=== PATIENT | male | born 1950 | race Caucasian/White ===

== ENCOUNTER → 2024-08-04 | Outpatient (CLI) | payer MEDICARE, SELFPAY ==
[2024-08-04 18:03] LABS: Absolute Lymphocyte Count 2.55 X10^3/uL (0.83-4.51); Absolute Neutrophil Count 8.5 X10^3/uL (2.0-7.7); Basophil# 0.07 X10^3/uL; Basophil% 0.6 % (0-1); Eosinophil# 0.27 X10^3/uL; Eosinophils% 2.2 % (0-5); Hematocrit 45.8 % (40-54); Hemoglobin 15.3 g/dL (13.0-16.5); Lymphocyte # 2.55 X10^3/ul (0.83-4.51); Mean Corp Hgb Conc 33.4 g/dL (32-36); Mean Corpuscular Volume 89.8 fL (80-94); Mean Platelet Vol. 11.2 fl (6.2-12.0); Monocyte% 5.8 % (0-10); NRBC Flagged by Analyzer 0 % (0-5); Neutrophil # 8.49 X10^3/uL (2.7-7.7); Platelet Count 273 K/mm3 (150-450); RBC Distribution Width CV 13.2 % (11.6-14.6); RBC Distribution Width SD 43.3 fl (35.1-43.9); White Blood Count 12.1 K/mm3 (4.4-11.0)
[2024-08-04 18:05] LABS: Erythrocyte Sedimentation Rate 2 mm/hr (0-20)
[2024-08-04 18:27] LABS: ALB/GLOB Ratio 1.1 RATIO (0.9-2.4); AST(SGOT) 16 U/L (15-37); Alanine Aminotransfer ALT/SGPT 21 U/L (16-61); Alkaline Phosphatase 63 U/L (45-117); Anion Gap 7 (5-15); BUN 23 mg/dL (7-18); BUN/Creat Ratio 18.9 RATIO (10-20); CRP < 2.90 mg/L (0.0-3.0); Calcium,Total 9.9 mg/dL (8.5-10.1); Chloride 105 mmol/L (98-107); Creatinine, Serum 1.22 mg/dL (0.70-1.30); EST Glomerular Filtration Rate 61 mL/min (>60); Est Glom Filt Rate - Afr Amer 74 mL/min (>60); Globulin 3.5 g/dL (2.2-4.2); Glucose 100 mg/dL (74-106); Potassium 3.4 mmol/L (3.5-5.1); Protein, Total 7.5 g/dL (6.4-8.2); Sodium Level 138 mmol/L (136-145)
[2024-08-04 18:46] LABS: Hepatitis B Surface Antibody Non-Reactive; Hepatitis B Surface Antigen Non-Reactive (Nonreactive); Hepatitis C Antibody Non-Reactive (Nonreactive)
[2024-08-07 13:07] LABS: CCP IgG Antibodies > 250 units (0-19)
== END | disposition home or self-care (01) ==
PROVIDERS: PCP Internal Medicine; Referring Provider Internal Medicine Rheumatology; Visit Provider Internal Medicine Rheumatology
DX: M05.79 Rheumatoid arthritis with rheumatoid factor of multiple sites without organ or systems involvement (principal); Z79.899 Other long term (current) drug therapy
CPT/HCPCS: 36415; 80053; 85025; 85652; 86140; 86200; 86431; 86706; 86803; 87340

== ENCOUNTER → 2025-04-03 | Outpatient (CLI) | payer MEDICARE, SELFPAY ==
[2025-04-03 17:08] LABS: ALB/GLOB Ratio 1.4 RATIO (0.9-2.4); AST(SGOT) 36 U/L (<=37); Alanine Aminotransfer ALT/SGPT 26 U/L (<=46); Albumin, Serum 4.2 g/dL (3.4-4.8); Alkaline Phosphatase 46 U/L (40-129); Anion Gap 13 (5-15); BUN 27 mg/dL (4-19); BUN/Creat Ratio 20.2 RATIO (10-20); Carbon Dioxide 21.4 mmol/L (21.0-32.0); Chloride 104 mmol/L (98-108); Creatinine, Serum 1.32 mg/dL (0.70-1.20); EST Glomerular Filtration Rate 56 (>60); Globulin 2.9 g/dL (2.2-4.2); Glucose 88 mg/dL (70-99); Potassium 4.2 mmol/L (3.3-5.1); Protein, Total 7.1 g/dL (5.9-8.4); Sodium Level 138 mmol/L (133-145); Total Bilirubin 0.53 mg/dL (0.00-1.30)
[2025-04-03 17:11] LABS: Absolute Lymphocyte Count 1.82 X10^3/uL (0.83-4.51); Absolute Neutrophil Count 7.5 X10^3/uL (2.0-7.7); Basophil# 0.05 X10^3/uL; Basophil% 0.5 % (0-1); Eosinophil# 0.34 X10^3/uL; Eosinophils% 3.2 % (0-5); Hematocrit 39.9 % (40-54); Hemoglobin 13.6 g/dL (13.0-16.5); Lymphocyte # 1.82 X10^3/ul (0.83-4.51); Lymphocyte % 17.3 % (19-41); Mean Corp Hgb Conc 34.1 g/dL (32-36); Mean Corpuscular Volume 93.9 fL (80-94); Mean Platelet Vol. 10.7 fl (6.2-12.0); Monocyte% 6.7 % (0-10); NRBC Flagged by Analyzer 0 % (0-5); Neutrophil # 7.54 X10^3/uL (2.7-7.7); Neutrophil % 71.9 % (47-70); Platelet Count 318 K/mm3 (150-450); RBC Distribution Width CV 13.7 % (11.6-14.6); RBC Distribution Width SD 46.9 fl (35.1-43.9); Red Blood Count 4.25 M/mm3 (4.6-6.2); White Blood Count 10.5 K/mm3 (4.4-11.0)
--- OUTSIDE RECORDS SUMMARY | 2025-04-03 23:10 | XMS RPT_ITS | CCD ---
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 Name Role Phone Concepcion Grajeda MD Primary Care Provider ANTHONY AQUINO, DR CONCEPCION Osorio Attending Aracelis Andrews MD, DR CONCEPCION Osorio Primary Care Unavailab Darryl AQUINO, DR CONCEPCION Osorio Attending Aracelis Andrews MD, DR CONCEPCION Osorio Primary Care Unavailab Darryl AQUINO, DR CONCEPCION Osorio Attending Aracelis Andrews MD, DR CONCEPCION Osorio Primary Care Unavailab Darryl AQUINO, DR CONCEPCION Osorio Attending Unavailab Darryl AQUINO, DR CONCEPCION Osorio Primary Care Unavailab Darryl AQUINO, DR CONCEPCION Osorio Primary Care Unavailab 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, 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 Attending Basil Collier Referring Unavailable Basil Gallagher Attending Unavailable Concepcion Grajeda Primary Care Unavailable Concepcion Grajeda MD Primary Care Provider ANTHONY AQUINO, DR CONCEPCION Osorio Primary Care Unavailab Darryl AQUINO, DR CONCEPCION Osorio Attending Aracelis Andrews MD, DR CONCEPCION Osorio Attending Aracleis Andrews MD, DR CONCEPCION Osorio Primary Care Unavailab Dany AQUINO, PANFILO Schneider Attending Unavailable ANTHONY AQUINO, DR CONCEPCION Osorio Primary Care Unavailab le BENY, BASIL L Referring Unavailable CONCEPCION GRAJEDA Primary Care Unavailable DAV LUKE Attending CONCEPCION Cason Primary Care Unavailable BENY, BASIL L Referring Unavailable ANTHONYCONCEPCION Grayson Primary Care Unavailable BENY, BASIL L Referring Unavailable CONCEPCION GRAJEDA Primary Care Unavailable BENY, BASIL L Referring Unavailable CONCEPCION GRAJEDA Primary Care Unavailable ANTHONY AQUINO, DR CONCEPCION Osorio Primary Care Physician BENY AQUINO, DR GRACIA Attending Unavailabl e ANTHONY AQUINO, DR CONCEPCION Osorio Primary Care Unavailab le Medications Current Medications Medication Drug Class(es) Dates Sig (Normalized) Sig (Original) aspirin 81 mg delayed release oral tablet (2 sources) Platelet Aggregation Inhibitor, Nonsteroidal Anti-inflammatory Drug Start: 11-09-2024 aspirin 81 mg oral delayed release tablet Dose : 81 mg = 1 tab(s), Oral, Daily, # 30 tab(s), 0 Refill(s), other reason (Rx) Start Date: 11/09/24 Status: Ordered Quantity: 30.0 Unit: tab(s) Repeat number: 1 fenofibrate 145 mg oral tablet (5 sources) Peroxisome Proliferator Receptor alpha Agonist Start: 06-16-2024 fenofibrate 145 mg oral tablet Dose : 145 mg = 1 tab(s), Oral, qDay, # 100 tab(s), 3 Refill(s), Pharmacy: [facility], 177.8, cm, 05/16/24 8:57:00 EDT, Height, kg, 05/16/24 8:57:00 EDT, Dosing Weight Start Date: 06/16/24 Status: Ordered Quantity: 100.0 Unit: tab(s) Repeat number: 4 Fenofibrate 150 mg cap Take 145 mg by mouth once daily. Active Comment on above: Take 145 mg by mouth once daily. finasteride 5 mg oral tablet (9 sources) 5-alpha Reductase Inhibitor Start: 023 End: 026 finasteride 5 mg oral tablet Dose : 5 mg = 1 tab(s), Oral, qDay, # 30 tab(s), 0 Refill(s) Start Date: 08/10/23 Status: Ordered Quantity: 30.0 Unit: tab(s) Repeat number: 1 Comment on above: Take 1 tablet by gomez th once daily. Take 5 mg by mouth o nce daily. folic acid 1 mg oral tablet (1 source) Start: 025 take 2 tablets by mouth once daily folic acid 1 mg oral tablet TAKE 2 TABLETS BY MOUTH EVERY DAY Start Date: 11/09/24 Status: Ordered Repeat number: 1 hydroCHLOROthiazide 25 mg / losartan potassium 100 mg oral tablet (1 source) Thiazide Diuretic, Angiotensin 2 Receptor Isabel Start: 024 take 1 tablet by mouth once daily Hyzaar 100-25 mg oral tablet Dose = 1 tab(s), Oral, qDay, # 100 tab(s), 4 Refill(s), Pharmacy: [facility], BPH with urinary obstruction Hyperlipidemia, 177.8, cm, 11/01/23 14:32:00 EST, Height, kg, 11/01/23 14:32:00 EST, Dosing Weight Start Date: 01/26/24 Status: Ordered Quantity: 100.0 Unit: tab(s) Repeat number: 5 Indications: Benign prostatic hyperplasia with lower urinary tract symptoms; Hyperlipidemia, unspecified; latanoprost 0.05 mg/ml ophthalmic solution (1 source) Prostaglandin Analog Start: latanoprost 0.005% ophthalmic solution 0 Refill(s) Start Date: 11/09/24 Status: Ordered Repeat number: 1 losartan potassium 100 mg oral tablet (4 sources) Angiotensin 2 Receptor Isabel take 1 tablet by mouth once daily losartan (COZAAR) 100 mg tablet Take 100 mg by mouth once daily. Active Comment on above: Take 100 mg by mouth once daily. methotrexate 2.5 mg oral tablet (2 sources) Folate Analog Metabolic Inhibitor Start: take 6 tablets by mouth every week methotrexate 2.5 mg oral tablet TAKE 6 TABLETS BY MOUTH ONCE A WEEK Start Date: 11/09/24 Status: Ordered Repeat number: 1 Start: 08-11-2024 take 1 tablet by mouth once me thotrexate 2.5 mg tablet Take 2.5 mg by mouth one time only. 08/11/2024 Active omeprazole 40 mg delayed release oral capsule (1 source) Proton Pump Inhibitor Start: 03-01-2025 take 1 capsule by mouth once daily omeprazole 40 mg oral delayed release capsule 1 cap(s), Oral, qDay, # 90 cap(s), 3 Refill(s), Pharmacy: [facility], 177, cm, 11/09/24 13:06:00 EST, Height, kg, 11/09/24 13:06:00 EST, Dosing Weight Start Date: 03/01/25 Status: Ordered Quantity: 90.0 Unit: cap(s) Repeat number: 1 predniSONE 5 mg oral tablet (1 source) Start: 11-09-2024 take 0.5 tablet by mouth once daily predniSONE 5 mg oral tablet 0.5, Oral, qDay, # 30 EA, 1 Refill(s), other reason (Rx) Start Date: 11/09/24 Status: Ordered Quantity: 30.0 Unit: EA Repeat number: 2 rosuvastatin calcium 20 mg oral tablet (5 sources) HMG-CoA Reductase Inhibitor Start: 12-13-2024 take 1 tablet by mouth once daily rosuvastatin 20 mg oral tablet 1 tab(s), Oral, qDay, # 90 tab(s), 3 Refill(s), Pharmacy: [facility], 177, cm, 11/09/24 13:06:00 EST, Height, kg, 11/09/24 13:06:00 EST, Dosing Weight Start Date: 12/13/24 Status: Ordered Quantity: 90.0 Unit: tab(s) Repeat number: 1 take 1 tablet by mouth once matias y rosuvastatin (CRESTOR) 20 mg tablet Take 20 mg by mouth once daily. Active Comment on above: Take 20 mg by mouth once daily. silodosin 8 mg oral capsule (9 sources) alpha-Adrenergic Isabel Start: 3 End: 6 silodosin 8 mg oral capsule Dose : 8 mg = 1 cap(s), Oral, Daily, # 30 cap(s), 0 Refill(s) Start Date: 08/10/23 Status: Ordered Quantity: 30.0 Unit: cap(s) Repeat number: 1 Comment on above: Take 1 capsule by mo ut daily with dinner. Take by mouth daily with dinner. simvastatin 10 mg oral tablet (4 sources) HMG-CoA Reductase Inhibitor take 1 tablet by mouth once daily at bedtime simvastatin (ZOCOR) 10 mg tablet Take 10 mg by mouth daily at bedtime. Active Comment on above: Take 10 mg by mouth daily at bedtime. Problems Active Problems Problem Classification Problem Date Documented Date Episodic/Chronic Chronic kidney disease (1 source) Chronic kidney disease 11-01-2023 Chronic Disorders of lipid metabolism (3 sources) Hyperlipidemia, unspecified; Translations: [Hyperlipidemia] Onset: 08-26-2023 Chronic Esophageal disorders (1 source) Gastroesophageal reflux disease 05-16-2024 Chronic Essential hypertension (5 sources) Essential (primary) hypertension; Translations: [Hypertensive disorder] Onset: 08-26-2023 Chronic Hyperplasia of prostate (6 sources) Weak urinary stream due to benign prostatic hypertrophy; Translations: [Benign prostatic hyperplasia with lower urinary tract symptoms] Onset: 08-26-2023 06-18-2023 Chronic Other aftercare (3 sources) 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; Translations: [prison use of drug] Onset: 09-19-2024 Episodic Other circulatory disease (1 source) Respiratory crackles 05-16-2024 Episodic Other ear and sense organ disorders (1 source) Excessive cerumen in ear canal 08-10-2023 Episodic Other lower respiratory disease (1 source) Pulmonary congestion 08-10-2023 Chronic Other lower respiratory disease (1 source) Imaging of lung abnormal 06-28-2024 Episodic Other lower respiratory disease (1 source) Multiple nodules of lung 11-09-2024 Episodic Other lower respiratory disease (1 source) Wheezing 05-16-2024 Episodic Other non-traumatic joint disorders (2 sources) Pain in unspecified joint; Translations: [Pain in unspecified joint] Onset: 07-20-2024 Episodic Other upper respiratory disease (1 source) Bleeding from nose 08-10-2023 Episodic Other upper respiratory disease (1 source) Hoarse 08-10-2023 Episodic Residual codes; unclassified (1 source) Needs influenza immunization 06-28-2024 Episodic Rheumatoid arthritis and related disease (6 sources) Rheumatoid arthritis with rheumatoid factor of multiple sites without organ or systems involvement; Translations: [Rheumatoid arthritis] Onset: 08-31-2024 11-09-2024 Chronic Unclassified (1 source) Patient encounter status 11-01-2023 Past or Other Problems Problem Classification Problem Date Documented Da te Episodic/Chronic Genitourinary symptoms and ill-defined conditions (1 source) Poor urinary stream; Translations: [Benign prostatic hyperplasia with weak urinary stream] Onset: 11-20-2024 Episodic Other circulatory disease (2 sources) Other specified symptoms and signs involving the circulatory and respiratory systems; Translations: [Other specified symptoms and signs involving the circulatory and respiratory systems] Onset: 08-26-2023 Episodic Other screening for suspected conditions (not mental disorders or infectious disease) (8 sources) Patient encounter status; Translations: [Encounter for screening for malignant neoplasm of prostate] Onset: 11-20-2024 06-18-2023 Episodic Other upper respiratory disease (2 sources) Epistaxis; Translations: [Epistaxis] Onset: 08-26-2023 Episodic Results Test Name Value Interpretation Reference Range Facil ity US ABDOMEN LIMITEDon 025 US ABDOMEN LIMITED ORIGINAL EXAMINATION: LIMITED ABDOMINAL ULTRASOUND03/08/2025 8:10 am COMPARISON: None HISTORY: ORDERING SYSTEM PROVIDED HISTORY: Reason for Exam: ELEVATED LIVER ENZYMES FINDINGS: The liver measures 15.2 cm and has increased echogenicity. No focal lesions are seen. There is no intra or extrahepatic bile duct dilatation. The common duct is 4.1 mm at the ever hepatis. The gallbladder is normally distended without calculus, wall thickening or tenderness. Negative sonographic Ramos sign. The visualized pancreas is normal in size and echogenicity. No ascites is seen in the RIGHT upper quadrant. Limited survey images of the RIGHT kidney show normal echogenicity and no pelvocaliectasis. There is a simple right renal cyst measuring 3 cm. IMPRESSION: Hepatic steatosis or other diffuse hepatocellular disease. I have personally reviewed the images of this examination and agree with the resident's findings and interpretation. Interpreted by: Jc Zarco DO Preliminary Report By: Jose Wilson MD Electronically signed By Jc Zarco DO Dictated Date: 03/08/2025 8:14:26 AM Prelim Date: 03/08/2025 8:29:28 AM Sign Date: 03/08/2025 8:29:28 AM Ordering Provider: BASIL Montanez [facility] Comprehensive metabolic 2000 panelon 03-07-2025 Albumin [Mass/Vol] 3.7 g/dL Normal 3.2-5.0 [facility] Comment on above: Order Comment: Alex gaytan Type: BLOOD SPECIMEN Ordering Facility: [facility] Address: [address] [place] [address] Performed By: #### 2 4323-8 #### [facility] CLIA [id number] [address] [place] [address] [place] ALP [Catalytic activity/Vol] 54 U/L Normal 45-117 [facility] Comment on above: Order Comment: Alex gaytan Type: BLOOD SPECIMEN Ordering Facility: [facility] Address: [address] [place] [address] Performed By: #### 2 4323-8 #### [facility] CLIA [id number] [address] [place] [address] [place] ALT [Catalytic activity/Vol] 19 U/L Normal 13-61 [facility] Comment on above: Order Comment: Speci men Type: BLOOD SPECIMEN Ordering Facility: [facility] Address: [address] [place] [address] Result Comment: Resu lts may be falsely depressed after the administration of Sulfasalazine and/or Sulfapyridine. Performed By: #### 2 4323-8 #### [facility] CLIA [id number] [address] [place] [address] STATES OF [facility] Anion gap [Moles/Vol] 11 mmol/L Normal 5-16 [facility] Comment on above: Order Comment: Speci lukas Type: BLOOD SPECIMEN Ordering Facility: [facility] Address: [address] [place] [address] Performed By: #### 2 4323-8 #### [facility] CLIA [id number] [address] [place] [address] [place] AST [Catalytic activity/Vol] 30 U/L Normal 8-34 [facility] Comment on above: Order Comment: Speci men Type: BLOOD SPECIMEN Ordering Facility: [facility] Address: [address] [place] [address] Result Comment: Resu lts may be falsely depressed after the administration of Sulfasalazine and/or Sulfapyridine. Performed By: #### 2 4323-8 #### [facility] CLIA [id number] [address] [place] [address] [place] Bilirubin [Mass/Vol] 0.5 mg/dL Normal 0.2-1.0 [facility] Comment on above: Order Comment: Speci men Type: BLOOD SPECIMEN Ordering Facility: [facility] Address: [address] [place] [address] Performed By: #### 2 4323-8 #### [facility] CLIA [id number] [address] [place] [address] [place] Calcium [Mass/Vol] 10.2 mg/dL Normal 8.5-10.5 [facility] Comment on above: Order Comment: Alex gaytan Type: BLOOD SPECIMEN Ordering Facility: [facility] Address: [address] [place] [address] Performed By: #### 2 4323-8 #### [facility] CLIA [id number] [address] [place] [address] [place] Chloride [Moles/Vol] 104 mmol/L Normal 98-107 [facility] Comment on above: Order Comment: Alex gaytan Type: BLOOD SPECIMEN Ordering Facility: [facility] Address: [address] [place] [address] Performed By: #### 2 4323-8 #### [facility] CLIA [id number] [address] [place] [address] [place] CO2 [Moles/Vol] 26 mmol/L Normal 21-32 [facility] Comment on above: Order Comment: Alex gaytan Type: BLOOD SPECIMEN Ordering Facility: [facility] Address: [address] [place] [address] Performed By: #### 2 4323-8 #### [facility] CLIA [id number] [address] [place] [address] [place] Creatinine [Mass/Vol] 1.29 mg/dL Normal 0.50-1.40 [facility] Comment on above: Order Comment: Alex gaytan Type: BLOOD SPECIMEN Ordering Facility: [facility] Address: [address] [place] [address] Result Comment: Gwen ents receiving either N-Acetylcysteine (NAC) or Metamizole prior to venipuncture, may have falsely depressed results. Performed By: #### 2 4323-8 #### [facility] CLIA [id number] [address] [place] [address] [place] Creatinine and Glomerular filtration rate.predicted panel (S/P/Bld) 57 mL/min/1.73m??? Low >=60 [facility] Comment on above: Order Comment: Alex gaytan Type: BLOOD SPECIMEN Ordering Facility: [facility] Address: [address] [place] [address] Result Comment: Lynn mated Glomerular Filtration Rate (eGFR) is calculated using the 2020 CKD-EPI creatinine equation. This equation utilizes serum creatinine, sex, and age as parameters. The creatinine assay has traceable calibration to isotope dilution-mass spectrometry. Refer to KDIGO guidelines for clinical interpretation. In patients with unstable renal function, e.g. those with acute kidney injury, the eGFR may not accurately reflect actual GFR. Performed By: #### 2 4323-8 #### [facility] CLIA [id number] [address] [place] [address] [place] Glucose [Mass/Vol] 95 mg/dL Normal 70-100 [facility] Comment on above: Order Comment: Speci men Type: BLOOD SPECIMEN Ordering Facility: [facility] Address: [address] [place] [address] Result Comment: The [place] [employer] (ADA) provides guidance for cutoff values for fasting glucose and random glucose. The ADA defines fasting as no caloric intake for at least 8 hours. Fasting plasma glucose results between 100 to 125 mg/dL indicate increased risk for diabetes (prediabetes). Fasting plasma glucose results greater than or equal to 126 mg/dL meet the criteria for diagnosis of diabetes. In the absence of unequivocal hyperglycemia, results should be confirmed by repeat testing. In a patient with classic symptoms of hyperglycemia or hyperglycemic crisis, random plasma glucose results greater than or equal to 200 mg/dL meet the criteria for diagnosis of diabetes. Reference: Standards of Medical Care in Diabetes 2016, [place] [employer]. Diabetes Care. 2016.39(Suppl 1). Results may be falsely elevated after the administration of Sulfapyridine. Results may be falsely depressed after the administration of Sulfasalazine. Performed By: #### 2 4323-8 #### [facility] CLIA [id number] [address] [place] [address] [place] Potassium [Moles/Vol] 3.9 mmol/L Normal 3.5-5.1 [facility] Comment on above: Order Comment: Speci men Type: BLOOD SPECIMEN Ordering Facility: [facility] Address: [address] [place] [address] Performed By: #### 2 4323-8 #### [facility] CLIA [id number] [address] [place] [address] [place] Protein [Mass/Vol] 6.8 g/dL Normal 6.0-8.5 [facility] Comment on above: Order Comment: Speci men Type: BLOOD SPECIMEN Ordering Facility: [facility] Address: [address] [place] [address] Performed By: #### 2 4323-8 #### [facility] CLIA [id number] [address] [place] [address] [place] Sodium [Moles/Vol] 141 mmol/L Normal 136-145 [facility] Comment on above: Order Comment: Speci men Type: BLOOD SPECIMEN Ordering Facility: [facility] Address: [address] [place] [address] Performed By: #### 2 4323-8 #### [facility] CLIA [id number] [address] [place] [address] [place] Urea nitrogen [Mass/Vol] 29 mg/dL High 7-26 [facility] Comment on above: Order Comment: Speci men Type: BLOOD SPECIMEN Ordering Facility: [facility] Address: [address] [place] [address] Performed By: #### 2 4323-8 #### [facility] CLIA [id number] [address] [place] [address] [place] CBC W Auto Differential pane l (Bld)on 01-23-2025 Basophils (Bld) [#/Vol] 0.07 10*3/uL Normal <0.11 [facility] Comment on above: Order Comment: Speci men Type: BLOOD SPECIMEN Ordering Facility: [facility] Address: [address] [place] [address] Performed By: #### 5 7021-8 #### [facility] CLIA [id number] [address] [place] [address] [place] Basophils/100 WBC (Bld) 1.0 % Normal [facility] Comment on above: Order Comment: Speci men Type: BLOOD SPECIMEN Ordering Facility: [facility] Address: [address] [place] [address] Performed By: #### 5 7021-8 #### [facility] CLIA [id number] [address] [place] [address] [place] Differential cell count method Nom (Bld) Manual Normal [facility] Comment on above: Order Comment: Speci men Type: BLOOD SPECIMEN Ordering Facility: [facility] Address: [address] [place] [address] Performed By: #### 5 7021-8 #### [facility] CLIA [id number] [address] [place] [address] [place] Eosinophils (Bld) [#/Vol] 0.37 10*3/uL Normal <0.46 [facility] Comment on above: Order Comment: Speci men Type: BLOOD SPECIMEN Ordering Facility: [facility] Address: [address] [place] [address] Performed By: #### 5 7021-8 #### [facility] CLIA [id number] [address] [place] [address] [place] Eosinophils/100 WBC (Bld) 5.0 % Normal [facility] Comment on above: Order Comment: Speci men Type: BLOOD SPECIMEN Ordering Facility: [facility] Address: [address] [place] [address] Performed By: #### 5 7021-8 #### [facility] CLIA [id number] [address] [place] [address] [place] Erythrocyte distribution width (RBC) [Ratio] 13.5 % Normal 11.5-15.0 [facility] Comment on above: Order Comment: Speci men Type: BLOOD SPECIMEN Ordering Facility: [facility] Address: [address] [place] [address] Performed By: #### 5 7021-8 #### [facility] CLIA [id number] [address] [place] [address] [place] Hematocrit (Bld) [Volume fraction] 42.4 % Normal 39.0-51.0 [facility] Comment on above: Order Comment: Speci men Type: BLOOD SPECIMEN Ordering Facility: [facility] Address: [address] [place] [address] Performed By: #### 5 7021-8 #### [facility] CLIA [id number] [address] [place] [address] [place] Hemoglobin (Bld) [Mass/Vol] 14.4 g/dL Normal 13.0-17.0 [facility] Comment on above: Order Comment: Speci men Type: BLOOD SPECIMEN Ordering Facility: [facility] Address: [address] [place] [address] Performed By: #### 5 7021-8 #### [facility] CLIA [id number] [address] [place] [address] Lymphocytes (Bld) [#/Vol] 1.49 10*3/uL Normal 1.00-4.00 [facility] Comment on above: Order Comment: Speci men Type: BLOOD SPECIMEN Ordering Facility: [facility] Address: [address] [place] [address] Performed By: #### 5 7021-8 #### [facility] CLIA [id number] [address] [place] [address] Lymphocytes/100 WBC (Bld) 20.0 % Normal [facility] Comment on above: Order Comment: Speci men Type: BLOOD SPECIMEN Ordering Facility: [facility] Address: [address] [place] [address] Performed By: #### 5 7021-8 #### [facility] CLIA [id number] [address] [place] [address] [place] MCH (RBC) [Entitic mass] 32.0 pg Normal 26.0-34.0 [facility] Comment on above: Order Comment: Speci men Type: BLOOD SPECIMEN Ordering Facility: [facility] Address: [address] [place] [address] Performed By: #### 5 7021-8 #### [facility] CLIA [id number] [address] [place] [address] MCHC (RBC) [Mass/Vol] 34.0 g/dL Normal 30.5-36.0 [facility] Comment on above: Order Comment: Speci men Type: BLOOD SPECIMEN Ordering Facility: [facility] Address: [address] [place] [address] Performed By: #### 5 7021-8 #### [facility] CLIA [id number] [address] [place] [address] [place] MCV (RBC) [Entitic vol] 94.2 fL Normal 80.0-100.0 [facility] Comment on above: Order Comment: Speci men Type: BLOOD SPECIMEN Ordering Facility: [facility] Address: [address] [place] [address] Performed By: #### 5 7021-8 #### [facility] CLIA [id number] [address] [place] [address] [place] Monocytes (Bld) [#/Vol] 0.59 10*3/uL Normal <0.87 [facility] Comment on above: Order Comment: Speci men Type: BLOOD SPECIMEN Ordering Facility: [facility] Address: [address] [place] [address] Performed By: #### 5 7021-8 #### [facility] CLIA [id number] [address] [place] [address] [place] Monocytes/100 WBC (Bld) 8.0 % Normal [facility] Comment on above: Order Comment: Speci men Type: BLOOD SPECIMEN Ordering Facility: [facility] Address: [address] [place] [address] Performed By: #### 5 7021-8 #### [facility] CLIA [id number] [address] [place] [address] [place] Neutrophils (Bld) [#/Vol] 4.90 10*3/uL Normal 1.45-7.50 [facility] Comment on above: Order Comment: Speci men Type: BLOOD SPECIMEN Ordering Facility: [facility] Address: [address] [place] [address] Performed By: #### 5 7021-8 #### [facility] CLIA [id number] [address] [place] [address] [place] Neutrophils/100 WBC (Bld) 66.0 % Normal [facility] Comment on above: Order Comment: Speci men Type: BLOOD SPECIMEN Ordering Facility: [facility] Address: [address] [place] [address] Performed By: #### 5 7021-8 #### [facility] CLIA [id number] [address] [place] [address] [place] Nucleated RBC (Bld) [#/Vol] 10*3/uL Normal <0.01 [facility] Comment on above: Order Comment: Speci men Type: BLOOD SPECIMEN Ordering Facility: [facility] Address: [address] [place] [address] Performed By: #### 5 7021-8 #### [facility] CLIA [id number] [address] [place] [address] [place] Nucleated RBC/100 WBC (Bld) [Ratio] 0.0 /100 WBC Normal [facility] Comment on above: Order Comment: Speci men Type: BLOOD SPECIMEN Ordering Facility: [facility] Address: [address] [place] [address] Performed By: #### 5 7021-8 #### [facility] CLIA [id number] [address] [place] [address] [place] Platelet mean volume (Bld) [Entitic vol] 10.0 fL Normal 9.0-12.7 [facility] Comment on above: Order Comment: Speci men Type: BLOOD SPECIMEN Ordering Facility: [facility] Address: [address] [place] [address] Performed By: #### 5 7021-8 #### [facility] CLIA [id number] [address] [place] [address] [place] Platelets (Bld) [#/Vol] 322 10*3/uL Normal 150-400 [facility] Comment on above: Order Comment: Speci men Type: BLOOD SPECIMEN Ordering Facility: [facility] Address: [address] [place] [address] Performed By: #### 5 7021-8 #### [facility] CLIA [id number] [address] [place] [address] [place] Platelets Estimate (Bld) [#/Vol] Adequate Normal [facility] Comment on above: Order Comment: Speci men Type: BLOOD SPECIMEN Ordering Facility: [facility] Address: [address] [place] [address] Performed By: #### 5 7021-8 #### [facility] CLIA [id number] [address] [place] [address] [place] RBC (Bld) [#/Vol] 4.50 10*6/uL Normal 4.20-6.00 [facility] Comment on above: Order Comment: Speci men Type: BLOOD SPECIMEN Ordering Facility: [facility] Address: [address] [place] [address] Performed By: #### 5 7021-8 #### [facility] CLIA [id number] [address] [place] [address] RED CELL MORPH Reviewed: unremarkable Normal [facility] Comment on above: Order Comment: Speci men Type: BLOOD SPECIMEN Ordering Facility: [facility] Address: [address] [place] [address] Performed By: #### 5 7021-8 #### [facility] CLIA [id number] [address] [place] [address] [place] WBC (Bld) [#/Vol] 7.43 10*3/uL Normal 3.70-11.00 [facility] Comment on above: Order Comment: Speci men Type: BLOOD SPECIMEN Ordering Facility: [facility] Address: [address] [place] [address] Performed By: #### 5 7021-8 #### [facility] CLIA [id number] [address] [place] [address] [place] Comprehensive metabolic 2000 panelon 01-23-2025 Albumin [Mass/Vol] 4.3 g/dL Normal 3.2-5.0 [facility] Comment on above: Order Comment: Alex gaytan Type: BLOOD SPECIMEN Ordering Facility: [facility] Address: [address] [place] [address] Performed By: #### 2 4323-8 #### [facility] CLIA [id number] [address] [place] [address] STATES [facility] ALP [Catalytic activity/Vol] 52 U/L Normal 45-117 [facility] Comment on above: Order Comment: Tiffanyi men Type: BLOOD SPECIMEN Ordering Facility: [facility] Address: [address] [place] [address] Performed By: #### 2 4323-8 #### [facility] CLIA [id number] [address] [place] [address] [place] ALT [Catalytic activity/Vol] 117 U/L High 13-61 [facility] Comment on above: Order Comment: Alex gaytan Type: BLOOD SPECIMEN Ordering Facility: [facility] Address: [address] [place] [address] Result Comment: Resu lts may be falsely depressed after the administration of Sulfasalazine and/or Sulfapyridine. Performed By: #### 2 4323-8 #### [facility] CLIA [id number] [address] [place] [address] Anion gap [Moles/Vol] 10 mmol/L Normal 5-16 [facility] Comment on above: Order Comment: Alex gaytan Type: BLOOD SPECIMEN Ordering Facility: [facility] Address: [address] [place] [address] Performed By: #### 2 4323-8 #### [facility] CLIA [id number] [address] [place] [address] [place] AST [Catalytic activity/Vol] 115 U/L High 8-34 [facility] Comment on above: Order Comment: Tiffanyi lukas Type: BLOOD SPECIMEN Ordering Facility: [facility] Address: [address] [place] [address] Result Comment: Resu lts may be falsely depressed after the administration of Sulfasalazine and/or Sulfapyridine. Performed By: #### 2 4323-8 #### [facility] CLIA [id number] [address] [place] [address] [place] Bilirubin [Mass/Vol] 0.5 mg/dL Normal 0.2-1.0 [facility] Comment on above: Order Comment: Speci men Type: BLOOD SPECIMEN Ordering Facility: [facility] Address: [address] [place] [address] Performed By: #### 2 4323-8 #### [facility] CLIA [id number] [address] [place] [address] [place] Calcium [Mass/Vol] 10.4 mg/dL Normal 8.5-10.5 [facility] Comment on above: Order Comment: Speci men Type: BLOOD SPECIMEN Ordering Facility: [facility] Address: [address] [place] [address] Performed By: #### 2 4323-8 #### [facility] CLIA [id number] [address] [place] [address] [place] Chloride [Moles/Vol] 102 mmol/L Normal 98-107 [facility] Comment on above: Order Comment: Speci men Type: BLOOD SPECIMEN Ordering Facility: [facility] Address: [address] [place] [address] Performed By: #### 2 4323-8 #### [facility] CLIA [id number] [address] [place] [address] [place] CO2 [Moles/Vol] 25 mmol/L Normal 21-32 [facility] Comment on above: Order Comment: Speci men Type: BLOOD SPECIMEN Ordering Facility: [facility] Address: [address] [place] [address] Performed By: #### 2 4323-8 #### [facility] CLIA [id number] [address] [place] [address] [place] Creatinine [Mass/Vol] 1.12 mg/dL Normal 0.50-1.40 [facility] Comment on above: Order Comment: Speci men Type: BLOOD SPECIMEN Ordering Facility: [facility] Address: [address] [place] [address] Result Comment: Gwen ents receiving either N-Acetylcysteine (NAC) or Metamizole prior to venipuncture, may have falsely depressed results. Performed By: #### 2 4323-8 #### [facility] CLIA [id number] [address] [place] [address] [place] Creatinine and Glomerular filtration rate.predicted panel (S/P/Bld) 68 mL/min/1.73m??? Normal >=60 [facility] Comment on above: Order Comment: Speclatia men Type: BLOOD SPECIMEN Ordering Facility: [facility] Address: [address] [place] [address] Result Comment: Lynn mated Glomerular Filtration Rate (eGFR) is calculated using the 2020 CKD-EPI creatinine equation. This equation utilizes serum creatinine, sex, and age as parameters. The creatinine assay has traceable calibration to isotope dilution-mass spectrometry. Refer to KDIGO guidelines for clinical interpretation. In patients with unstable renal function, e.g. those with acute kidney injury, the eGFR may not accurately reflect actual GFR. Performed By: #### 2 4323-8 #### [facility] CLIA [id number] [address] [place] [address] [place] Glucose [Mass/Vol] 83 mg/dL Normal 70-100 [facility] Comment on above: Order Comment: Alex men Type: BLOOD SPECIMEN Ordering Facility: [facility] Address: [address] [place] [address] Result Comment: The [place] [employer] (ADA) provides guidance for cutoff values for fasting glucose and random glucose. The ADA defines fasting as no caloric intake for at least 8 hours. Fasting plasma glucose results between 100 to 125 mg/dL indicate increased risk for diabetes (prediabetes). Fasting plasma glucose results greater than or equal to 126 mg/dL meet the criteria for diagnosis of diabetes. In the absence of unequivocal hyperglycemia, results should be confirmed by repeat testing. In a patient with classic symptoms of hyperglycemia or hyperglycemic crisis, random plasma glucose results greater than or equal to 200 mg/dL meet the criteria for diagnosis of diabetes. Reference: Standards of Medical Care in Diabetes 2016, [place] [employer]. Diabetes Care. 2016.39(Suppl 1). Results may be falsely elevated after the administration of Sulfapyridine. Results may be falsely depressed after the administration of Sulfasalazine. Performed By: #### 2 4323-8 #### [facility] CLIA [id number] [address] [place] [address] [place] Potassium [Moles/Vol] 4.3 mmol/L Normal 3.5-5.1 [facility] Comment on above: Order Comment: Alex gaytan Type: BLOOD SPECIMEN Ordering Facility: [facility] Address: [address] [place] [address] Performed By: #### 2 4323-8 #### [facility] CLIA [id number] [address] [place] [address] [place] Protein [Mass/Vol] 7.4 g/dL Normal 6.0-8.5 [facility] Comment on above: Order Comment: Alex gaytan Type: BLOOD SPECIMEN Ordering Facility: [facility] Address: [address] [place] [address] Performed By: #### 2 4323-8 #### [facility] CLIA [id number] [address] [place] [address] [place] Sodium [Moles/Vol] 137 mmol/L Normal 136-145 [facility] Comment on above: Order Comment: Alex gaytan Type: BLOOD SPECIMEN Ordering Facility: [facility] Address: [address] [place] [address] Performed By: #### 2 4323-8 #### [facility] CLIA [id number] [address] [place] [address] [place] Urea nitrogen [Mass/Vol] 24 mg/dL Normal 7-26 [facility] Comment on above: Order Comment: Alex gaytan Type: BLOOD SPECIMEN Ordering Facility: [facility] Address: [address] [place] [address] Performed By: #### 2 4323-8 #### [facility] CLIA [id number] [address] [place] [address] [place] CBC W Auto Differential pane l (Bld)on 12-01-2024 Basophils (Bld) [#/Vol] 0.06 10*3/uL Normal <0.11 [facility] Comment on above: Order Comment: Speci men Type: BLOOD SPECIMEN Ordering Facility: [facility] Address: [address] [place] [address] Performed By: #### 5 7021-8 #### [facility] CLIA [id number] [address] [place] [address] [place] Basophils/100 WBC (Bld) 0.7 % Normal [facility] Comment on above: Order Comment: Speci men Type: BLOOD SPECIMEN Ordering Facility: [facility] Address: [address] [place] [address] Performed By: #### 5 7021-8 #### [facility] CLIA [id number] [address] [place] [address] [place] Differential cell count method Nom (Bld) Auto Normal [facility] Comment on above: Order Comment: Speci men Type: BLOOD SPECIMEN Ordering Facility: [facility] Address: [address] [place] [address] Performed By: #### 5 7021-8 #### [facility] CLIA [id number] [address] [place] [address] [place] Eosinophils (Bld) [#/Vol] 0.35 10*3/uL Normal <0.46 [facility] Comment on above: Order Comment: Speci men Type: BLOOD SPECIMEN Ordering Facility: [facility] Address: [address] [place] [address] Performed By: #### 5 7021-8 #### [facility] CLIA [id number] [address] [place] [address] [place] Eosinophils/100 WBC (Bld) 4.0 % Normal [facility] Comment on above: Order Comment: Speci men Type: BLOOD SPECIMEN Ordering Facility: [facility] Address: [address] [place] [address] Performed By: #### 5 7021-8 #### [facility] CLIA [id number] [address] [place] [address] [place] Erythrocyte distribution width (RBC) [Ratio] 14.4 % Normal 11.5-15.0 [facility] Comment on above: Order Comment: Speci men Type: BLOOD SPECIMEN Ordering Facility: [facility] Address: [address] [place] [address] Performed By: #### 5 7021-8 #### [facility] CLIA [id number] [address] [place] [address] [place] Hematocrit (Bld) [Volume fraction] 41.3 % Normal 39.0-51.0 [facility] Comment on above: Order Comment: Speci men Type: BLOOD SPECIMEN Ordering Facility: [facility] Address: [address] [place] [address] Performed By: #### 5 7021-8 #### [facility] CLIA [id number] [address] [place] [address] [place] Hemoglobin (Bld) [Mass/Vol] 14.0 g/dL Normal 13.0-17.0 [facility] Comment on above: Order Comment: Speci men Type: BLOOD SPECIMEN Ordering Facility: [facility] Address: [address] [place] [address] Performed By: #### 5 7021-8 #### [facility] CLIA [id number] [address] [place] [address] [place] Immature granulocytes (Bld) [#/Vol] 0.08 10*3/uL Normal <0.10 [facility] Comment on above: Order Comment: Speci men Type: BLOOD SPECIMEN Ordering Facility: [facility] Address: [address] [place] [address] Performed By: #### 5 7021-8 #### [facility] CLIA [id number] [address] [place] [address] [place] Immature granulocytes/100 WBC (Bld) 0.9 % Normal [facility] Comment on above: Order Comment: Speci men Type: BLOOD SPECIMEN Ordering Facility: [facility] Address: [address] [place] [address] Performed By: #### 5 7021-8 #### [facility] CLIA [id number] [address] [place] [address] [place] Lymphocytes (Bld) [#/Vol] 1.66 10*3/uL Normal 1.00-4.00 [facility] Comment on above: Order Comment: Speci men Type: BLOOD SPECIMEN Ordering Facility: [facility] Address: [address] [place] [address] Performed By: #### 5 7021-8 #### [facility] CLIA [id number] [address] [place] [address] [place] Lymphocytes/100 WBC (Bld) 19.1 % Normal [facility] Comment on above: Order Comment: Speci men Type: BLOOD SPECIMEN Ordering Facility: [facility] Address: [address] [place] [address] Performed By: #### 5 7021-8 #### [facility] CLIA [id number] [address] [place] [address] [place] MCH (RBC) [Entitic mass] 32.0 pg Normal 26.0-34.0 [facility] Comment on above: Order Comment: Speci men Type: BLOOD SPECIMEN Ordering Facility: [facility] Address: [address] [place] [address] Performed By: #### 5 7021-8 #### [facility] CLIA [id number] [address] [place] [address] [place] MCHC (RBC) [Mass/Vol] 33.9 g/dL Normal 30.5-36.0 [facility] Comment on above: Order Comment: Speci men Type: BLOOD SPECIMEN Ordering Facility: [facility] Address: [address] [place] [address] Performed By: #### 5 7021-8 #### [facility] CLIA [id number] [address] [place] [address] [place] MCV (RBC) [Entitic vol] 94.5 fL Normal 80.0-100.0 [facility] Comment on above: Order Comment: Speci men Type: BLOOD SPECIMEN Ordering Facility: [facility] Address: [address] [place] [address] Performed By: #### 5 7021-8 #### [facility] CLIA [id number] [address] [place] [address] [place] Monocytes (Bld) [#/Vol] 0.66 10*3/uL Normal <0.87 [facility] Comment on above: Order Comment: Speci men Type: BLOOD SPECIMEN Ordering Facility: [facility] Address: [address] [place] [address] Performed By: #### 5 7021-8 #### [facility] CLIA [id number] [address] [place] [address] [place] Monocytes/100 WBC (Bld) 7.6 % Normal [facility] Comment on above: Order Comment: Speci men Type: BLOOD SPECIMEN Ordering Facility: [facility] Address: [address] [place] [address] Performed By: #### 5 7021-8 #### [facility] CLIA [id number] [address] [place] [address] [place] Neutrophils (Bld) [#/Vol] 5.90 10*3/uL Normal 1.45-7.50 [facility] Comment on above: Order Comment: Speci men Type: BLOOD SPECIMEN Ordering Facility: [facility] Address: [address] [place] [address] Performed By: #### 5 7021-8 #### [facility] CLIA [id number] [address] [place] [address] [place] Neutrophils/100 WBC (Bld) 67.7 % Normal [facility] Comment on above: Order Comment: Speci men Type: BLOOD SPECIMEN Ordering Facility: [facility] Address: [address] [place] [address] Performed By: #### 5 7021-8 #### [facility] CLIA [id number] [address] [place] [address] [place] Platelet mean volume (Bld) [Entitic vol] 9.9 fL Normal 9.0-12.7 [facility] Comment on above: Order Comment: Speci men Type: BLOOD SPECIMEN Ordering Facility: [facility] Address: [address] [place] [address] Performed By: #### 5 7021-8 #### [facility] CLIA [id number] [address] [place] [address] [place] Platelets (Bld) [#/Vol] 282 10*3/uL Normal 150-400 [facility] Comment on above: Order Comment: Speci men Type: BLOOD SPECIMEN Ordering Facility: [facility] Address: [address] [place] [address] Performed By: #### 5 7021-8 #### [facility] CLIA [id number] [address] [place] [address] [place] RBC (Bld) [#/Vol] 4.37 10*6/uL Normal 4.20-6.00 [facility] Comment on above: Order Comment: Speci men Type: BLOOD SPECIMEN Ordering Facility: [facility] Address: [address] [place] [address] Performed By: #### 5 7021-8 #### [facility] CLIA [id number] [address] [place] [address] [place] WBC (Bld) [#/Vol] 8.71 10*3/uL Normal 3.70-11.00 [facility] Comment on above: Order Comment: Speci men Type: BLOOD SPECIMEN Ordering Facility: [facility] Address: [address] [place] [address] Performed By: #### 5 7021-8 #### [facility] CLIA [id number] [address] [place] [address] Comprehensive metabolic 2000 panelon 12-01-2024 Albumin [Mass/Vol] 3.9 g/dL Normal 3.2-5.0 [facility] Comment on above: Order Comment: Alex gaytan Type: BLOOD SPECIMEN Ordering Facility: [facility] Address: [address] [place] [address] Performed By: #### 2 4323-8 #### [facility] CLIA [id number] [address] [place] [address] [place] ALP [Catalytic activity/Vol] 59 U/L Normal 45-117 [facility] Comment on above: Order Comment: Alex gaytan Type: BLOOD SPECIMEN Ordering Facility: [facility] Address: [address] [place] [address] Performed By: #### 2 4323-8 #### [facility] CLIA [id number] [address] [place] [address] STATES OF [facility] ALT [Catalytic activity/Vol] 26 U/L Normal 13-61 [facility] Comment on above: Order Comment: Alex gaytan Type: BLOOD SPECIMEN Ordering Facility: [facility] Address: [address] [place] [address] Result Comment: Resu lts may be falsely depressed after the administration of Sulfasalazine and/or Sulfapyridine. Performed By: #### 2 4323-8 #### [facility] CLIA [id number] [address] [place] [address] STATES OF [facility] Anion gap [Moles/Vol] 5 mmol/L Normal 5-16 [facility] Comment on above: Order Comment: Alex gaytan Type: BLOOD SPECIMEN Ordering Facility: [facility] Address: [address] [place] [address] Performed By: #### 2 4323-8 #### [facility] CLIA [id number] [address] [place] [address] [place] AST [Catalytic activity/Vol] 34 U/L Normal 8-34 [facility] Comment on above: Order Comment: Alex gaytan Type: BLOOD SPECIMEN Ordering Facility: [facility] Address: [address] [place] [address] Result Comment: Resu lts may be falsely depressed after the administration of Sulfasalazine and/or Sulfapyridine. Performed By: #### 2 4323-8 #### [facility] CLIA [id number] [address] [place] [address] [place] Bilirubin [Mass/Vol] 0.3 mg/dL Normal 0.2-1.0 [facility] Comment on above: Order Comment: Speci men Type: BLOOD SPECIMEN Ordering Facility: [facility] Address: [address] [place] [address] Performed By: #### 2 4323-8 #### [facility] CLIA [id number] [address] [place] [address] [place] Calcium [Mass/Vol] 10.3 mg/dL Normal 8.5-10.5 [facility] Comment on above: Order Comment: Speci men Type: BLOOD SPECIMEN Ordering Facility: [facility] Address: [address] [place] [address] Performed By: #### 2 4323-8 #### [facility] CLIA [id number] [address] [place] [address] [place] Chloride [Moles/Vol] 108 mmol/L High 98-107 [facility] Comment on above: Order Comment: Tiffanyi lukas Type: BLOOD SPECIMEN Ordering Facility: [facility] Address: [address] [place] [address] Performed By: #### 2 4323-8 #### [facility] CLIA [id number] [address] [place] [address] [place] CO2 [Moles/Vol] 26 mmol/L Normal 21-32 [facility] Comment on above: Order Comment: Tiffanyi men Type: BLOOD SPECIMEN Ordering Facility: [facility] Address: [address] [place] [address] Performed By: #### 2 4323-8 #### [facility] CLIA [id number] [address] [place] [address] [place] Creatinine [Mass/Vol] 1.19 mg/dL Normal 0.50-1.40 [facility] Comment on above: Order Comment: Alex gaytan Type: BLOOD SPECIMEN Ordering Facility: [facility] Address: [address] [place] [address] Result Comment: Gwen ents receiving either N-Acetylcysteine (NAC) or Metamizole prior to venipuncture, may have falsely depressed results. Performed By: #### 2 4323-8 #### [facility] CLIA [id number] [address] [place] [address] [place] Creatinine and Glomerular filtration rate.predicted panel (S/P/Bld) 63 mL/min/1.73m??? Normal >=60 [facility] Comment on above: Order Comment: Alex gaytan Type: BLOOD SPECIMEN Ordering Facility: [facility] Address: [address] [place] [address] Result Comment: Lynn mated Glomerular Filtration Rate (eGFR) is calculated using the 2020 CKD-EPI creatinine equation. This equation utilizes serum creatinine, sex, and age as parameters. The creatinine assay has traceable calibration to isotope dilution-mass spectrometry. Refer to KDIGO guidelines for clinical interpretation. In patients with unstable renal function, e.g. those with acute kidney injury, the eGFR may not accurately reflect actual GFR. Performed By: #### 2 4323-8 #### [facility] CLIA [id number] [address] [place] [address] [place] Glucose [Mass/Vol] 113 mg/dL High 70-100 [facility] Comment on above: Order Comment: Alex gaytan Type: BLOOD SPECIMEN Ordering Facility: [facility] Address: [address] [place] [address] Result Comment: The [place] Diabetes [employer] (ADA) provides guidance for cutoff values for fasting glucose and random glucose. The ADA defines fasting as no caloric intake for at least 8 hours. Fasting plasma glucose results between 100 to 125 mg/dL indicate increased risk for diabetes (prediabetes). Fasting plasma glucose results greater than or equal to 126 mg/dL meet the criteria for diagnosis of diabetes. In the absence of unequivocal hyperglycemia, results should be confirmed by repeat testing. In a patient with classic symptoms of hyperglycemia or hyperglycemic crisis, random plasma glucose results greater than or equal to 200 mg/dL meet the criteria for diagnosis of diabetes. Reference: Standards of Medical Care in Diabetes 2016, [place] [employer]. Diabetes Care. 2016.39(Suppl 1). Results may be falsely elevated after the administration of Sulfapyridine. Results may be falsely depressed after the administration of Sulfasalazine. Performed By: #### 2 4323-8 #### [facility] CLIA [id number] [address] [place] [address] [place] Potassium [Moles/Vol] 4.0 mmol/L Normal 3.5-5.1 [facility] Comment on above: Order Comment: Speci men Type: BLOOD SPECIMEN Ordering Facility: [facility] Address: [address] [place] [address] Performed By: #### 2 4323-8 #### [facility] CLIA [id number] [address] [place] [address] [place] Protein [Mass/Vol] 6.9 g/dL Normal 6.0-8.5 [facility] Comment on above: Order Comment: Tiffanyi lukas Type: BLOOD SPECIMEN Ordering Facility: [facility] Address: [address] [place] [address] Performed By: #### 2 4323-8 #### [facility] CLIA [id number] [address] [place] [address] [place] Sodium [Moles/Vol] 139 mmol/L Normal 136-145 [facility] Comment on above: Order Comment: Tiffanyi lukas Type: BLOOD SPECIMEN Ordering Facility: [facility] Address: [address] [place] [address] Performed By: #### 2 4323-8 #### [facility] CLIA [id number] [address] [place] [address] [place] Urea nitrogen [Mass/Vol] 28 mg/dL High 7-26 [facility] Comment on above: Order Comment: Tiffanyi lukas Type: BLOOD SPECIMEN Ordering Facility: [facility] Address: [address] [place] [address] Performed By: #### 2 4323-8 #### [facility] CLIA [id number] [address] [place] [address] [place] [address] THORAX W/ CONTRASTon -3 CT THORAX W/ CONTRAST ORIGINAL EXAMINATION: CT OF THE CHEST WITH CONTRAST 11/22/2024 1:05 pm TECHNIQUE: CT of the chest was performed with the administration of intravenous contrast. Multiplanar reformatted images are provided for review. Automated exposure control, iterative reconstruction, and/or weight based adjustment of the mA/kV was utilized to reduce the radiation dose to as low as reasonably achievable. COMPARISON: Noncontrast chest CT 06/09/2024 HISTORY: ORDERING SYSTEM PROVIDED HISTORY: Reason for Exam: OTHER NONSPECIFIC ABNORMAL FINDING OF LUNG FIELD Prior mediastinal lymphadenopathy. FINDINGS: Mediastinum: Borderline lymph nodes again demonstrated in the pretracheal space and aortopulmonary window and both hilar regions all measuring less than 1 cm. This is similar to prior noncontrast CT study. There is no pericardial effusion. Significant calcification of multiple coronary arteries is apparent, unchanged. Lungs/pleura: Lungs display mild diffuse central lobar emphysema. Scattered 2-3 mm nodules are again noted in the right and left lobes, essentially unchanged from prior assessment. Minimal scarring is again noted in the medial inferior right lung base. Additional focal area of interstitial scarring affects the lingula. There is no de Rogelio parenchymal mass lesion. Upper Abdomen: Upper abdomen is appropriately enhanced with displaying moderate fatty change within the liver. There is no adrenal mass or acute surgical finding. Images from a CT angiogram performed throughout the chest. Aorta is of normal caliber without dissection or aneurysm. The pulmonary arteries are appropriately enhance with contrast material and display no evidence for pulmonary embolism. Soft Tissues/Bones: Soft tissues are symmetric. Skeletal elements are intact and unchanged. IMPRESSION: 1. No evidence for pulmonary embolism or acute cardiopulmonary process. 2. Mild diffuse central lobar emphysema. 3. Scattered 2-3 mm nodules in the right and left lung are unchanged from prior assessment. 4. Borderline mediastinal and hilar lymph nodes are unchanged from prior assessment. 5. Moderate fatty change within the liver. 6. Significant calcification of multiple coronary arteries. Interpreted by: Jc Zarco DO Preliminary Report By: Jc Zarco DO Electronically signed By Jc Zarco DO Dictated Date: 11/24/2024 8:28:13 AM Prelim Date: 11/24/2024 8:34:19 AM Sign Date: 11/24/2024 8:34:19 AM Ordering Provider: PANFILO GRACIA Normal MADDISONPATRICIA VALDOVINOSJORGE L PSAon 11-21-2024 Prostate Specific Antigen 4.13 ng/mL High 0.02-4.00 MADDISONMELI NOONANJessie Comment on above: Result Comment: Gwen ent results determined by assays using different manufacturers for methods may not be comparable. Performed By: #### P SA #### [facility] [address] [place] [address] BLADDER SCANon 11-20-2024 PVR-33mL [facility] CNOVon 11-20-2024 CNOV Office Visit (URCANT ) GENARO ARAIZA ([id number]) 1950 M Date Time Provider Department 11/20/24 1:00 PM DAV LUKE URCANT During your visit today, we recorded the following information about you: Dav Luke MD 11/21/2024 12:48 AM Signed [facility] UROLOGY ESTABLISHED PATIENT CLINIC NOTE UROL GAETANO MOB PATIENT INFO: Genaro Araiza AGE: [age] year old PCP: CONCEPCION GRAJEDA MD IMPRESSION/PLAN: 1. Benign prostatic hyperplasia with weak urinary stream - ICD9: 600.01, 788.62, ICD10: N40.1, R39.12 (primary diagnosis) -Gated prostate volume based on MRI is 248 cc. - Remain on Rapaflo and finasteride. These are working well for the patient. Refills provided. 2. Elevated PSA - ICD9: 790.93, ICD10: R97.20 -Patient well overdue for PSA testing, order provided. 3. Prostate cancer screening - ICD9: V76.44, ICD10: Z12.5 -As above 4. Screening for genitourinary condition - ICD9: V81.6, ICD10: Z13.89 REASON FOR VISIT: Follow-up, BPH management HPI: Genaro Araiza returns for continuing evaluation and management. Pleasant 74-year-old who returns for BPH management. Last seen May 2023. Overall he continues to do well on current combination of finasteride and Rapaflo. No major complaints at this time. See IPSS scores below. INTERNATIONAL PROSTATE SYMPTOM SCORE (I-PSS) 1)INCOMPLETE EMPTYING Over the past month, how often have you had a sensation of not emptying your bladder completely after you finished urinating? SCORE: 1- Less than 1 time in 5 2)FREQUENCY Over the past month, how often have you had to urinate again less than two hours after you finished urinating? SCORE: 2- less than half the time 3)INTERMITTENCY Over the past month, how often have you found you stopped and started again several times when you urinated? SCORE: 1- Less than 1 time in 5 4)URGENCY Over the past month, how often have you found it difficult to postpone urination? SCORE: 0- Not at all 5)WEAK STREAM Over the past month, how often have you had a weak stream? SCORE: 1- Less than 1 time in 5 6)STRAINING Over the past month, how often have you had to push or strain to begin urination SCORE: 0- Not at all 7)NOCTURIA Over the past month, how many times did you most typically get up to urinate from the time you went to bed at night until the time you get up in the morning? SCORE:1 TOTAL I-PSS SCORE: 6 QUALITY OF LIFE DUE TO URINARY SYMPTOMS If you were to spend the rest of yur life with your urinary condition just the way it is now, how would you feel about that? 1- Pleased UROLOGICAL DATA: Urinalysis: GLUCOSE UA (POCT) Negative 06/18/2023 BILIRUBIN UA (POCT) Negative 06/18/2023 KETONE UA (POCT) Negative 06/18/2023 SPECIFIC GRAVITY UA (POCT) 1.025 06/18/2023 HEMOGLOBIN/BLOOD UA (POCT) Negative 06/18/2023 PH UA (POCT) 5.5 06/18/2023 PROTEIN UA (POCT) Negative 06/18/2023 UROBILINOGEN UA (POCT) 0.2 06/18/2023 NITRITE UA (POCT) Negative 06/18/2023 LEUKOCYTES UA (POCT) Negative 06/18/2023 COLOR UA (POCT) Yellow 06/18/2023 CLARITY UA (POCT) Clear 06/18/2023 Post Void Residual, Ultrasound: 33 cc , empties adequately OTHER DATA: No results found for: PSA, PSAPER No results found for: ISOPSA Creatinine Date Value Ref Range Status 09/19/2024 1.24 0.50 - 1.40 mg/dL Final Comment: Patients receiving either N-Acetylcysteine (NAC) or Metamizole prior to venipuncture, may have falsely depressed results. No results found for: TESTOST, TESTFREE PMHx/PSHx: see above, otherwise unchanged Rx: reviewed and unchanged ROS: see above, otherwise unchanged Labs: None Imaging: None MEDICATIONS: Current Outpatient Medications Medication Sig methotrexate 2.5 mg tablet Take 2.5 mg by mouth one time only. aspirin, enteric coated (ASPIRIN, ENTERIC COATED) 81 mg EC tablet Take 81 mg by mouth once daily. Fenofibrate 150 mg cap Take 145 mg by mouth once daily. rosuvastatin (CRESTOR) 20 mg tablet Take 20 mg by mouth once daily. losartan (COZAAR) 100 mg tablet Take 100 mg by mouth once daily. finasteride (PROSCAR) 5 mg tablet Take 1 tablet by mouth once daily. silodosin (RAPAFLO) 8 mg cap capsule Take 1 capsule by mouth daily with dinner. simvastatin (ZOCOR) 10 mg tablet Take 10 mg by mouth daily at bedtime. (Patient not taking: Reported on 11/20/2024) No current facility-administered medications for this visit. PHYSICAL EXAM: There were no vitals taken for this visit. There is no height or weight on file to calculate BMI. General: Well masculinized, well nourished male Psych: euthymic, NAD Neuro: AANDOx3 Inguinal: No lesions, adenopathy, or hernias Phallus: normal, circumcised, no lesions Meatus: orthotopic, patent, no discharge Scrotum: no lesions, normal rugae Testes: Descended, nontender, and no masses bilatera (more content not included)... Normal [facility] LIPIDon 11-20-2024 Cholesterol [Mass/Vol] 120 mg/dL Normal 0-200 [facility] Comment on above: Result Comment: Chol esterol Reference Interval: Less than 200 Desirable 200-239 Borderline high risk 240 and above High risk Performed By: #### L IPID #### [facility] [address] [place], [place] [address] Cholesterol in HDL [Mass/Vol] 48 mg/dL Normal 40-60 [facility] Comment on above: Performed By: #### L IPID #### [facility] [place], [place] [address] Cholesterol in LDL [Mass/Vol] 45 mg/dL Normal 0-130 [facility] Comment on above: Performed By: #### L IPID #### [facility] [address] [place], [place] [address] Triglyceride [Mass/Vol] 135 mg/dL Normal 0-150 [facility] Comment on above: Performed By: #### L IPID #### [facility] [address] [place], [place] [address] UA DIP, URINE (POC)on 2024 BILIRUBIN UA (POCT) Negative Negative [facility] CLARITY UA (POCT) [facility] COLOR UA (POCT) Yellow [facility] GLUCOSE UA (POCT) Negative Negative mg/dL [facility] Hemoglobin Ql (U) Negative [facility] KETONE UA (POCT) Negative Negative mg[facility]dL [facility] LEUKOCYTES UA (POCT) Negative Negative [facility] NITRITE UA (POCT) Negative Negative [facility] PH UA (POCT) 5.5 4.5 - 8.0 [facility] Protein Ql (U) Negative Negative mg/dL [facility] SPECIFIC GRAVITY UA (POCT) 1.025 1.005 - 1.030 [facility] UROBILINOGEN UA (POCT) 0.2 Normal E.U./dL [facility] Location:[facility] [place], [address] [place] [address], [address] [facility] POINT OF CARE [facility] Edward 11-09-2024 JOSÉ Telephone ([id number]) TEODORAGENARO KRISTEN ([id number]) 1950 M Date Time Provider Department 11/09/24 DAV LUKE [id number] During your visit today, we recorded the following information about you: Mona Mittal OCCA 11/09/2024 2:05 PM Signed Joss, from Dr. Grajeda's office, called and wanted to set up an annual checkup for the pt. Can you please call pt to schedule? He was last seen by Dr. Luke in 2022. Dr. Grajeda's office would like for us to call and let them know when the appt is for. Thanks, CARLITOS Morrissey Stephanie 11/13/2024 9:57 AM Signed Patient is scheduled 11/20/24, patient is aware. Left message with 's office 11/13/24. Allergies As of Date: 11/09/2024 (No Known Allergies) Date Reviewed: 06/18/2023 Reviewed by: Sondra Barry, ROSSY - Fully Assessed Prescriptions as of 11/13/2024 - finasteride (PROSCAR) 5 mg tablet TAKE 1 TABLET BY MOUTH ONCE DAILY - silodosin (RAPAFLO) 8 mg cap capsule TAKE 1 CAPSULE BY MOUTH DAILY WITH DINNER - simvastatin (ZOCOR) 10 mg tablet Take 10 mg by mouth daily at bedtime. - Fenofibrate 150 mg cap Take 145 mg by mouth once daily. - rosuvastatin (CRESTOR) 20 mg tablet Take 20 mg by mouth once daily. - losartan (COZAAR) 100 mg tablet Take 100 mg by mouth once daily. Problem List As Of Date: 11/09/2024 (None) Encounter Status:Closed by SONAL SNATOS on 11/13/24 [facility] CBC W Auto Differential pane l (Bld)on 09-19-2024 Basophils (Bld) [#/Vol] 0.04 10*3/uL Normal <0.11 [facility] Comment on above: Order Comment: Speci men Type: BLOOD SPECIMEN Ordering Facility: [facility] Address: [address] [place] [address] Performed By: #### 5 7021-8 #### [facility] CLIA [id number] [address] [place] [address] [place] Basophils/100 WBC (Bld) 0.5 % Normal [facility] Comment on above: Order Comment: Speci men Type: BLOOD SPECIMEN Ordering Facility: [facility] Address: [address] [place] [address] Performed By: #### 5 7021-8 #### [facility] CLIA [id number] [address] [place] [address] Differential cell count method Nom (Bld) Auto Normal [facility] Comment on above: Order Comment: Speci men Type: BLOOD SPECIMEN Ordering Facility: [facility] Address: [address] [place] [address] Performed By: #### 5 7021-8 #### [facility] CLIA [id number] [address] [place] [address] [place] Eosinophils (Bld) [#/Vol] 0.29 10*3/uL Normal <0.46 [facility] Comment on above: Order Comment: Speci men Type: BLOOD SPECIMEN Ordering Facility: [facility] Address: [address] [place] [address] Performed By: #### 5 7021-8 #### [facility] CLIA [id number] [address] [place] [address] Eosinophils/100 WBC (Bld) 3.9 % Normal [facility] Comment on above: Order Comment: Speci men Type: BLOOD SPECIMEN Ordering Facility: [facility] Address: [address] [place] [address] Performed By: #### 5 7021-8 #### [facility] CLIA [id number] [address] [place] [address] [place] Erythrocyte distribution width (RBC) [Ratio] 14.1 % Normal 11.5-15.0 [facility] Comment on above: Order Comment: Speci men Type: BLOOD SPECIMEN Ordering Facility: [facility] Address: [address] [place] [address] Performed By: #### 5 7021-8 #### [facility] CLIA [id number] [address] [place] [address] [place] Hematocrit (Bld) [Volume fraction] 45.6 % Normal 39.0-51.0 [facility] Comment on above: Order Comment: Speci men Type: BLOOD SPECIMEN Ordering Facility: [facility] Address: [address] [place] [address] Performed By: #### 5 7021-8 #### [facility] CLIA [id number] [address] [place] [address] [place] Hemoglobin (Bld) [Mass/Vol] 15.0 g/dL Normal 13.0-17.0 [facility] Comment on above: Order Comment: Speci men Type: BLOOD SPECIMEN Ordering Facility: [facility] Address: [address] [place] [address] Performed By: #### 5 7021-8 #### [facility] CLIA [id number] [address] [place] [address] [place] Immature granulocytes (Bld) [#/Vol] 0.04 10*3/uL Normal <0.10 [facility] Comment on above: Order Comment: Speci men Type: BLOOD SPECIMEN Ordering Facility: [facility] Address: [address] [place] [address] Performed By: #### 5 7021-8 #### [facility] CLIA [id number] [address] [place] [address] [place] Immature granulocytes/100 WBC (Bld) 0.5 % Normal [facility] Comment on above: Order Comment: Speci men Type: BLOOD SPECIMEN Ordering Facility: [facility] Address: [address] [place] [address] Performed By: #### 5 7021-8 #### [facility] CLIA [id number] [address] [place], [place] [address] [place] Lymphocytes (Bld) [#/Vol] 2.50 10*3/uL Normal 1.00-4.00 [facility] Comment on above: Order Comment: Speci men Type: BLOOD SPECIMEN Ordering Facility: [facility] Address: [address] [place] [address] Performed By: #### 5 7021-8 #### [facility] CLIA [id number] [address] [place] [address] [place] Lymphocytes/100 WBC (Bld) 33.2 % Normal [facility] Comment on above: Order Comment: Speci men Type: BLOOD SPECIMEN Ordering Facility: [facility] Address: [address] [place] [address] Performed By: #### 5 7021-8 #### [facility] CLIA [id number] [address] [place] [address] [place] MCH (RBC) [Entitic mass] 30.2 pg Normal 26.0-34.0 [facility] Comment on above: Order Comment: Speci men Type: BLOOD SPECIMEN Ordering Facility: [facility] Address: [address] [place] [address] Performed By: #### 5 7021-8 #### [facility] CLIA [id number] [address] [place], [place] [address] [place] MCHC (RBC) [Mass/Vol] 32.9 g/dL Normal 30.5-36.0 [facility] Comment on above: Order Comment: Speci men Type: BLOOD SPECIMEN Ordering Facility: [facility] Address: [address] [place] [address] Performed By: #### 5 7021-8 #### [facility] CLIA [id number] [address] [place], [place] [address] [place] MCV (RBC) [Entitic vol] 91.9 fL Normal 80.0-100.0 [facility] Comment on above: Order Comment: Speci men Type: BLOOD SPECIMEN Ordering Facility: [facility] Address: [address] [place] [address] Performed By: #### 5 7021-8 #### [facility] CLIA [id number] [address] [place], [place] [address] [place] Monocytes (Bld) [#/Vol] 0.45 10*3/uL Normal <0.87 [facility] Comment on above: Order Comment: Speci men Type: BLOOD SPECIMEN Ordering Facility: [facility] Address: [address] [place] [address] Performed By: #### 5 7021-8 #### [facility] CLIA [id number] [address] [place] [address] Monocytes/100 WBC (Bld) 6.0 % Normal [facility] Comment on above: Order Comment: Speci men Type: BLOOD SPECIMEN Ordering Facility: [facility] Address: [address] [place] [address] Performed By: #### 5 7021-8 #### [facility] CLIA [id number] [address] [place], [place] [address] [place] Neutrophils (Bld) [#/Vol] 4.20 10*3/uL Normal 1.45-7.50 [facility] Comment on above: Order Comment: Speci men Type: BLOOD SPECIMEN Ordering Facility: [facility] Address: [address] [place] [address] Performed By: #### 5 7021-8 #### [facility] CLIA [id number] [address] [place] [address] Neutrophils/100 WBC (Bld) 55.9 % Normal [facility] Comment on above: Order Comment: Speci men Type: BLOOD SPECIMEN Ordering Facility: [facility] Address: [address] [place] [address] Performed By: #### 5 7021-8 #### [facility] CLIA [id number] [address] [place] [address] [place] Platelet mean volume (Bld) [Entitic vol] 10.2 fL Normal 9.0-12.7 [facility] Comment on above: Order Comment: Speci men Type: BLOOD SPECIMEN Ordering Facility: [facility] Address: [address] [place] [address] Performed By: #### 5 7021-8 #### [facility] CLIA [id number] [address] [place] [address] [place] Platelets (Bld) [#/Vol] 304 10*3/uL Normal 150-400 [facility] Comment on above: Order Comment: Speci men Type: BLOOD SPECIMEN Ordering Facility: [facility] Address: [address] [place] [address] Performed By: #### 5 7021-8 #### [facility] CLIA [id number] [address] [place] [address] [place] RBC (Bld) [#/Vol] 4.96 10*6/uL Normal 4.20-6.00 [facility] Comment on above: Order Comment: Speci men Type: BLOOD SPECIMEN Ordering Facility: [facility] Address: [address] [place] [address] Performed By: #### 5 7021-8 #### [facility] CLIA [id number] [address] [place] [address] [place] WBC (Bld) [#/Vol] 7.52 10*3/uL Normal 3.70-11.00 [facility] Comment on above: Order Comment: Speci men Type: BLOOD SPECIMEN Ordering Facility: [facility] Address: [address] [place] [address] Performed By: #### 5 7021-8 #### [facility] CLIA [id number] [address] [place], [place] [address] [facility] Comprehensive metabolic 2000 panelon 09-19-2024 Albumin [Mass/Vol] 3.8 g/dL Normal 3.2-5.0 [facility] Comment on above: Order Comment: Speci men Type: BLOOD SPECIMEN Ordering Facility: [facility] Address: [address] [place] [address] Performed By: #### 2 4323-8 #### [facility] CLIA [id number] [address] [place] [address] STATES [facility] ALP [Catalytic activity/Vol] 61 U/L Normal 45-117 [facility] Comment on above: Order Comment: Speci men Type: BLOOD SPECIMEN Ordering Facility: [facility] Address: [address] [place] [address] Performed By: #### 2 4323-8 #### [facility] CLIA [id number] [address] [place] [address] [place] ALT [Catalytic activity/Vol] 24 U/L Normal 13-61 [facility] Comment on above: Order Comment: Speci men Type: BLOOD SPECIMEN Ordering Facility: [facility] Address: [address] [place] [address] Result Comment: Resu lts may be falsely depressed after the administration of Sulfasalazine and/or Sulfapyridine. Performed By: #### 2 4323-8 #### [facility] CLIA [id number] [address] [place] [address] STATES [facility] Anion gap [Moles/Vol] 8 mmol/L Normal 5-16 [facility] Comment on above: Order Comment: Speci men Type: BLOOD SPECIMEN Ordering Facility: [facility] Address: [address] [place] [address] Performed By: #### 2 4323-8 #### [facility] CLIA [id number] [address] [place] [address] [place] AST [Catalytic activity/Vol] 30 U/L Normal 8-34 [facility] Comment on above: Order Comment: Tiffanyi men Type: BLOOD SPECIMEN Ordering Facility: [facility] Address: [address] [place] [address] Result Comment: Resu lts may be falsely depressed after the administration of Sulfasalazine and/or Sulfapyridine. Performed By: #### 2 4323-8 #### [facility] CLIA [id number] [address] [place] [address] [place] Bilirubin [Mass/Vol] 0.3 mg/dL Normal 0.2-1.0 [facility] Comment on above: Order Comment: Speci men Type: BLOOD SPECIMEN Ordering Facility: [facility] Address: [address] [place] [address] Performed By: #### 2 4323-8 #### [facility] CLIA [id number] [address] [place] [address] [place] Calcium [Mass/Vol] 10.4 mg/dL Normal 8.5-10.5 [facility] Comment on above: Order Comment: Speci men Type: BLOOD SPECIMEN Ordering Facility: [facility] Address: [address] [place] [address] Performed By: #### 2 4323-8 #### [facility] CLIA [id number] [address] [place] [address] [place] Chloride [Moles/Vol] 107 mmol/L Normal 98-107 [facility] Comment on above: Order Comment: Speci men Type: BLOOD SPECIMEN Ordering Facility: [facility] Address: [address] [place] [address] Performed By: #### 2 4323-8 #### [facility] CLIA [id number] [address] [place] [address] [place] CO2 [Moles/Vol] 28 mmol/L Normal 21-32 [facility] Comment on above: Order Comment: Speci men Type: BLOOD SPECIMEN Ordering Facility: [facility] Address: [address] [place] [address] Performed By: #### 2 4323-8 #### [facility] CLIA [id number] [address] [place] [address] [place] Creatinine [Mass/Vol] 1.24 mg/dL Normal 0.50-1.40 [facility] Comment on above: Order Comment: Speci men Type: BLOOD SPECIMEN Ordering Facility: [facility] Address: [address] [place] [address] Result Comment: Gwen ents receiving either N-Acetylcysteine (NAC) or Metamizole prior to venipuncture, may have falsely depressed results. Performed By: #### 2 4323-8 #### [facility] CLIA [id number] [address] [place] [address] [place] Creatinine and Glomerular filtration rate.predicted panel (S/P/Bld) 60 mL/min/1.73m??? Normal >=60 [facility] Comment on above: Order Comment: Alex gaytan Type: BLOOD SPECIMEN Ordering Facility: [facility] Address: [address] [place] [address] Result Comment: Lynn mated Glomerular Filtration Rate (eGFR) is calculated using the 2020 CKD-EPI creatinine equation. This equation utilizes serum creatinine, sex, and age as parameters. The creatinine assay has traceable calibration to isotope dilution-mass spectrometry. Refer to KDIGO guidelines for clinical interpretation. In patients with unstable renal function, e.g. those with acute kidney injury, the eGFR may not accurately reflect actual GFR. Performed By: #### 2 4323-8 #### [facility] CLIA [id number] [address] [place] [address] [place] Glucose [Mass/Vol] 90 mg/dL Normal 70-100 [facility] Comment on above: Order Comment: Alex gaytan Type: BLOOD SPECIMEN Ordering Facility: [facility] Address: [address] [place] [address] Result Comment: The [place] [employer] (ADA) provides guidance for cutoff values for fasting glucose and random glucose. The ADA defines fasting as no caloric intake for at least 8 hours. Fasting plasma glucose results between 100 to 125 mg/dL indicate increased risk for diabetes (prediabetes). Fasting plasma glucose results greater than or equal to 126 mg/dL meet the criteria for diagnosis of diabetes. In the absence of unequivocal hyperglycemia, results should be confirmed by repeat testing. In a patient with classic symptoms of hyperglycemia or hyperglycemic crisis, random plasma glucose results greater than or equal to 200 mg/dL meet the criteria for diagnosis of diabetes. Reference: Standards of Medical Care in Diabetes 2016, [place] [employer]. Diabetes Care. 2016.39(Suppl 1). Results may be falsely elevated after the administration of Sulfapyridine. Results may be falsely depressed after the administration of Sulfasalazine. Performed By: #### 2 4323-8 #### [facility] CLIA [id number] [address] [place] [address] [place] Potassium [Moles/Vol] 3.8 mmol/L Normal 3.5-5.1 [facility] Comment on above: Order Comment: Speci men Type: BLOOD SPECIMEN Ordering Facility: [facility] Address: [address] [place] [address] Performed By: #### 2 4323-8 #### [facility] CLIA [id number] [address] [place] [address] [place] Protein [Mass/Vol] 7.0 g/dL Normal 6.0-8.5 [facility] Comment on above: Order Comment: Speci men Type: BLOOD SPECIMEN Ordering Facility: [facility] Address: [address] [place] [address] Performed By: #### 2 4323-8 #### [facility] CLIA [id number] [address] [place] [address] [place] Sodium [Moles/Vol] 143 mmol/L Normal 136-145 [facility] Comment on above: Order Comment: Tiffanyi men Type: BLOOD SPECIMEN Ordering Facility: [facility] Address: [address] [place] [address] Performed By: #### 2 4323-8 #### [facility] CLIA [id number] [address] [place] [address] [place] Urea nitrogen [Mass/Vol] 24 mg/dL Normal 7-26 [facility] Comment on above: Order Comment: Speci men Type: BLOOD SPECIMEN Ordering Facility: [facility] Address: [address] [place] [address] Performed By: #### 2 4323-8 #### [facility] CLIA [id number] [address] [place] [address] [place] CCP IgG Antibodieson 08-07-2 024 CCP IgG Ab. > 250 High 0-19 [facility] Comment on above: Result Comment: Nega tive <20 Weak positive 20 - 39 Moderate positive 40 - 59 Strong positive >59 Performed at: [address], [place], [place] [id number] Cafe Server: Carlitos Gloria PhD, Phone: [phone] Performed By: #### L 4600.0100, L501.6710, L500.4050, L3890.6200, L3890.6100, L3890.6300, L505.7010, L100.0100, L101.9900 #### [facility] [address] [place], [address] CBC W/Diff, Automatedon 10- Absolute Lymph 2.55 X10 3/uL Normal 0.83-4.51 [facility] Comment on above: Performed By: #### L 4600.0100, L501.6710, L500.4050, L3890.6200, L3890.6100, L3890.6300, L505.7010, L100.0100, L101.9900 #### [facility] [address] [place], [address] Absolute Neut 8.5 X10 3/uL High 2.0-7.7 [facility] Comment on above: Performed By: #### L 4600.0100, L501.6710, L500.4050, L3890.6200, L3890.6100, L3890.6300, L505.7010, L100.0100, L101.9900 #### [facility] [address] [place], [address] Basophils/100 WBC (Bld) 0.6 % Normal 0-1 [facility] Comment on above: Performed By: #### L 4600.0100, L501.6710, L500.4050, L3890.6200, L3890.6100, L3890.6300, L505.7010, L100.0100, L101.9900 #### [facility] [address] [place], [address] Eosinophils/100 WBC (Bld) 2.2 % Normal 0-5 [facility] Comment on above: Performed By: #### L 4600.0100, L501.6710, L500.4050, L3890.6200, L3890.6100, L3890.6300, L505.7010, L100.0100, L101.9900 #### [facility] [address] [place], [address] Erythrocyte distribution width (RBC) [Ratio] 13.2 % Normal 11.6-14.6 [facility] Comment on above: Performed By: #### L 4600.0100, L501.6710, L500.4050, L3890.6200, L3890.6100, L3890.6300, L505.7010, L100.0100, L101.9900 #### [facility] [address] [place], [address] Hematocrit (Bld) [Volume fraction] 45.8 % Normal 40-54 [facility] Comment on above: Performed By: #### L 4600.0100, L501.6710, L500.4050, L3890.6200, L3890.6100, L3890.6300, L505.7010, L100.0100, L101.9900 #### [facility] [address] [place], [address] Hemoglobin (Bld) [Mass/Vol] 15.3 g/dL Normal 13.0-16.5 [facility] Comment on above: Performed By: #### L 4600.0100, L501.6710, L500.4050, L3890.6200, L3890.6100, L3890.6300, L505.7010, L100.0100, L101.9900 #### [facility] [address] [place], [address] IG% 0.400 Normal 0.0-0.9 [facility] Comment on above: Result Comment: IG% - Immature Granulocytes (promyelocytes, myelocytes and metamyelocytes) > 1% indicates that a LEFT SHIFT is Present. Performed By: #### L 4600.0100, L501.6710, L500.4050, L3890.6200, L3890.6100, L3890.6300, L505.7010, L100.0100, L101.9900 #### [facility] [address] [facility] [place], [address] Lymphocytes/100 WBC (Bld) 21.0 % Normal 19-41 [facility] Comment on above: Performed By: #### L 4600.0100, L501.6710, L500.4050, L3890.6200, L3890.6100, L3890.6300, L505.7010, L100.0100, L101.9900 #### [facility] [address] [place], [address] MCH (RBC) [Entitic mass] 30.0 pg Normal 27.0-32.0 [facility] Comment on above: Performed By: #### L 4600.0100, L501.6710, L500.4050, L3890.6200, L3890.6100, L3890.6300, L505.7010, L100.0100, L101.9900 #### [facility] [address] [place], [address] MCHC (RBC) [Mass/Vol] 33.4 g/dL Normal 32-36 [facility] Comment on above: Performed By: #### L 4600.0100, L501.6710, L500.4050, L3890.6200, L3890.6100, L3890.6300, L505.7010, L100.0100, L101.9900 #### [facility] [address] [place], [address] MCV (RBC) [Entitic vol] 89.8 fL Normal 80-94 [facility] Comment on above: Performed By: #### L 4600.0100, L501.6710, L500.4050, L3890.6200, L3890.6100, L3890.6300, L505.7010, L100.0100, L101.9900 #### [facility] [address] [place], [address] Monocytes/100 WBC (Bld) 5.8 % Normal 0-10 [facility] Comment on above: Performed By: #### L 4600.0100, L501.6710, L500.4050, L3890.6200, L3890.6100, L3890.6300, L505.7010, L100.0100, L101.9900 #### [facility] [address] [place], [address] Neutrophils/100 WBC (Bld) 70.0 % Normal 47-70 [facility] Comment on above: Performed By: #### L 4600.0100, L501.6710, L500.4050, L3890.6200, L3890.6100, L3890.6300, L505.7010, L100.0100, L101.9900 #### [facility] [address] [place], [address] Nucleated RBC (Bld) [#/Vol] 0 10*3/uL Normal 0-5 [facility] Comment on above: Performed By: #### L 4600.0100, L501.6710, L500.4050, L3890.6200, L3890.6100, L3890.6300, L505.7010, L100.0100, L101.9900 #### [facility] [address] [place], [address] Platelet mean volume (Bld) [Entitic vol] 11.2 fL Normal 6.2-12.0 [facility] Comment on above: Performed By: #### L 4600.0100, L501.6710, L500.4050, L3890.6200, L3890.6100, L3890.6300, L505.7010, L100.0100, L101.9900 #### [facility] [address] [place], [address] Platelets (Bld) [#/Vol] 273 10*3/uL Normal 150-450 [facility] Comment on above: Performed By: #### L 4600.0100, L501.6710, L500.4050, L3890.6200, L3890.6100, L3890.6300, L505.7010, L100.0100, L101.9900 #### [facility] [address] [place], [address] RBC (Bld) [#/Vol] 5.10 10*6/uL Normal 4.6-6.2 [facility] Comment on above: Performed By: #### L 4600.0100, L501.6710, L500.4050, L3890.6200, L3890.6100, L3890.6300, L505.7010, L100.0100, L101.9900 #### [facility] [address] [place], [address] RDW SD 43.3 fl Normal 35.1-43.9 [facility] Comment on above: Performed By: #### L 4600.0100, L501.6710, L500.4050, L3890.6200, L3890.6100, L3890.6300, L505.7010, L100.0100, L101.9900 #### [facility] [address] [place], [address] WBC (Bld) [#/Vol] 12.1 10*3/uL High 4.4-11.0 [facility] Comment on above: Performed By: #### L 4600.0100, L501.6710, L500.4050, L3890.6200, L3890.6100, L3890.6300, L505.7010, L100.0100, L101.9900 #### [facility] [address] [place], [address] CRPon 08-04-2024 C-REACTIVE PROT < 2.90 Normal 0.0-3.0 [facility] Comment on above: Result Comment: C-Re active Protein (CRP) provides useful information for the diagnosis, therapy and monitoring of inflammatory processes and associated diseases. For the evaluation of Relative Risk for Cardiovascular Disease, a High Sensitivity CRP (HSCRP) should be ordered. Performed By: #### L 4600.0100, L501.6710, L500.4050, L3890.6200, L3890.6100, L3890.6300, L505.7010, L100.0100, L101.9900 #### [facility] [address] [place], [address] Comprehensive Metabolic Prof ilon 08-04-2024 Albumin [Mass/Vol] 4.0 g/dL Normal 3.2-5.0 [facility] Comment on above: Performed By: #### L 4600.0100, L501.6710, L500.4050, L3890.6200, L3890.6100, L3890.6300, L505.7010, L100.0100, L101.9900 #### [facility] [address] [place], [address] Albumin/Globulin [Mass ratio] 1.1 {ratio} Normal 0.9-2.4 [facility] Comment on above: Performed By: #### L 4600.0100, L501.6710, L500.4050, L3890.6200, L3890.6100, L3890.6300, L505.7010, L100.0100, L101.9900 #### [facility] [address] [place], [address] ALK P 63 U/L Normal 45-117 [facility] Comment on above: Performed By: #### L 4600.0100, L501.6710, L500.4050, L3890.6200, L3890.6100, L3890.6300, L505.7010, L100.0100, L101.9900 #### [facility] [address] [place], [place], [address] ALT [Catalytic activity/Vol] 21 U/L Normal 16-61 [facility] Comment on above: Performed By: #### L 4600.0100, L501.6710, L500.4050, L3890.6200, L3890.6100, L3890.6300, L505.7010, L100.0100, L101.9900 #### [facility] [address] [place], [place], [address] AST [Catalytic activity/Vol] 16 U/L Normal 15-37 [facility] Comment on above: Performed By: #### L 4600.0100, L501.6710, L500.4050, L3890.6200, L3890.6100, L3890.6300, L505.7010, L100.0100, L101.9900 #### [facility] [address] [place], [address] Bilirubin [Mass/Vol] 0.70 mg/dL Normal 0.20-1.00 [facility] Comment on above: Result Comment: For patients on eltrombopag therapy, use of Dimension [place] TBIL is not recommended. Performed By: #### L 4600.0100, L501.6710, L500.4050, L3890.6200, L3890.6100, L3890.6300, L505.7010, L100.0100, L101.9900 #### [facility] [address] [place], [address] BUN/CRE 18.9 RATIO Normal 10-20 [facility] Comment on above: Performed By: #### L 4600.0100, L501.6710, L500.4050, L3890.6200, L3890.6100, L3890.6300, L505.7010, L100.0100, L101.9900 #### [facility] [address] [place], [address] CA,Total 9.9 mg/dL Normal 8.5-10.1 [facility] Comment on above: Performed By: #### L 4600.0100, L501.6710, L500.4050, L3890.6200, L3890.6100, L3890.6300, L505.7010, L100.0100, L101.9900 #### [facility] [address] [place], [address] Chloride [Moles/Vol] 105 mmol/L Normal 98-107 [facility] Comment on above: Performed By: #### L 4600.0100, L501.6710, L500.4050, L3890.6200, L3890.6100, L3890.6300, L505.7010, L100.0100, L101.9900 #### [facility] [address] [place], [address] CO2 [Moles/Vol] 26.0 mmol/L Normal 21.0-32.0 [facility] Comment on above: Performed By: #### L 4600.0100, L501.6710, L500.4050, L3890.6200, L3890.6100, L3890.6300, L505.7010, L100.0100, L101.9900 #### [facility] [address] [place], [address] Creatinine [Mass/Vol] 1.22 mg/dL Normal 0.70-1.30 [facility] Comment on above: Result Comment: The validity of the calculated GFR GFRAA in patients over 70 years has not been determined. Clinical correlation is essential. Performed By: #### L 4600.0100, L501.6710, L500.4050, L3890.6200, L3890.6100, L3890.6300, L505.7010, L100.0100, L101.9900 #### [facility] [address] [place], [address] (471) EST GFR - AA 74 mL/min Normal >60 [facility] Comment on above: Result Comment: Afri can [place] GFR Calc Performed By: #### L 4600.0100, L501.6710, L500.4050, L3890.6200, L3890.6100, L3890.6300, L505.7010, L100.0100, L101.9900 #### [facility] [address] [place], [address] (684) GAP 7 Normal 5-15 [facility] Comment on above: Performed By: #### L 4600.0100, L501.6710, L500.4050, L3890.6200, L3890.6100, L3890.6300, L505.7010, L100.0100, L101.9900 #### [facility] [address] [place], [address] GFR/1.73 sq M.predicted among non-blacks MDRD (S/P/Bld) [Vol rate/Area] 61 mL/min/{1.73_m2} Normal >60 [facility] Comment on above: Result Comment: Non- GFR Calc Performed By: #### L 4600.0100, L501.6710, L500.4050, L3890.6200, L3890.6100, L3890.6300, L505.7010, L100.0100, L101.9900 #### [facility] [address] [place], [address] Globulin (S) [Mass/Vol] 3.5 g/dL Normal 2.2-4.2 [facility] Comment on above: Performed By: #### L 4600.0100, L501.6710, L500.4050, L3890.6200, L3890.6100, L3890.6300, L505.7010, L100.0100, L101.9900 #### [facility] [address] [place], [address] Glucose [Mass/Vol] 100 mg/dL Normal 74-106 [facility] Comment on above: Result Comment: Fast ing Glucose result from 100 to 125 mg/dL suggests IMPAIRED HOMEOSTASIS per A.D.A. criteria. Performed By: #### L 4600.0100, L501.6710, L500.4050, L3890.6200, L3890.6100, L3890.6300, L505.7010, L100.0100, L101.9900 #### [facility] [address] [place], [address] Potassium [Moles/Vol] 3.4 mmol/L Low 3.5-5.1 [facility] Comment on above: Performed By: #### L 4600.0100, L501.6710, L500.4050, L3890.6200, L3890.6100, L3890.6300, L505.7010, L100.0100, L101.9900 #### [facility] [address] [place], [address] Sodium [Moles/Vol] 138 mmol/L Normal 136-145 [facility] Comment on above: Performed By: #### L 4600.0100, L501.6710, L500.4050, L3890.6200, L3890.6100, L3890.6300, L505.7010, L100.0100, L101.9900 #### [facility] [address] [place], [place], [address] T PROT 7.5 g/dL Normal 6.4-8.2 [facility] Comment on above: Performed By: #### L 4600.0100, L501.6710, L500.4050, L3890.6200, L3890.6100, L3890.6300, L505.7010, L100.0100, L101.9900 #### [facility] [address] [place], [place], [address] Urea nitrogen [Mass/Vol] 23 mg/dL High 7-18 [facility] Comment on above: Performed By: #### L 4600.0100, L501.6710, L500.4050, L3890.6200, L3890.6100, L3890.6300, L505.7010, L100.0100, L101.9900 #### [facility] [address] [place], [place], [address] Erythrocyte Sed Rateon 08-04 SED RATE 2 mm/hr Normal 0-20 [facility] Comment on above: Performed By: #### L 4600.0100, L501.6710, L500.4050, L3890.6200, L3890.6100, L3890.6300, L505.7010, L100.0100, L101.9900 #### [facility] [address] [place], [place], [address] Hepatitis B Surface Antibody on 08-04-2024 HEP B Surf Ab Non-Reactive Normal [facility] Comment on above: Result Comment: Non Reactive: Inconsistent with immunity less than <10 mIU/mL Reactive: Consistent with immunity greater than or equal to 10 mIU/mL Performed By: #### L 4600.0100, L501.6710, L500.4050, L3890.6200, L3890.6100, L3890.6300, L505.7010, L100.0100, L101.9900 #### [facility] [address] [place], [address] Hepatitis B Surface Antigeno n 08-04-2024 HEP B Surf Ag Non-Reactive Normal Nonreactive [facility] Comment on above: Performed By: #### L 4600.0100, L501.6710, L500.4050, L3890.6200, L3890.6100, L3890.6300, L505.7010, L100.0100, L101.9900 #### [facility] [address] [place], [address] Hepatitis C Antibodyon 08-04 Hepatitis C AB Non-Reactive Normal Nonreactive [facility] Comment on above: Result Comment: Non Reactive: < 0.8 Equivocal: >/= 0.8 to < 1.0 Reactive: >/= 1.0 The CDC requires that a reactive/equivocal HCV antibody result be sent out for confirmation. HCV Quant by PCR testing. Performed By: #### L 4600.0100, L501.6710, L500.4050, L3890.6200, L3890.6100, L3890.6300, L505.7010, L100.0100, L101.9900 #### [facility] [address] [place], [address] Rheumatoid Factoron 08-04-20 RHEUMATOID FAC 27.0 IU/mL High <15 [facility] Comment on above: Performed By: #### L 4600.0100, L501.6710, L500.4050, L3890.6200, L3890.6100, L3890.6300, L505.7010, L100.0100, L101.9900 #### [facility] [address] [place], [address] ANAIFSon 07-24-2024 Antinuclear Ab Screen Negative Normal Negative [facility] Comment on above: Result Comment: Anti -nuclear antibody test is used as an aid in diagnosis of systemic autoimmune diseases. Where positive and clinically warranted, follow-up using disease-specific testing is recommended. Low positive titers are not uncommon with advanced age, certain chronic infections, and malignancies among others. Test methodology: Indirect fluorescence immunoassay (IFA) using HEp-2 cells. Performed By: [facility] [employer] [address] [place] [address] Cafe Server: Jovanni Miles III, M.D. CLIA#: [id number] Performed By: #### A NAIFS #### [address] [address] RFon 07-23-2024 Rheumatoid Factor 61.8 High <=5.9 [facility] Comment on above: Result Comment: RF I gM Antibody by Enzyme Immunoassay: Negative < or = 6 Positive > 6 A positive result indicates the presence of RF antibodies and suggests the possibility of rheumatoid arthritis. A negative result indicates no RF IgM antibody or levels below the negative cut-off of the assay. Results of this assay should be used in conjunction with clinical findings and other serological tests. These results were obtained with the [employer] QUANTA Lite RF IgM KYLE. RF IgM values obtained with different manufacturers' assay methods may not be used interchangeably. The magnitude of the reported IgM levels cannot be correlated to an endpoint titer. Performed By: #### C BC, ADIFF, ESR, URIC, GFR, CRP, CMP, ANEU, RF, TSHR #### [address] [address] .Auto Diffon 07-20-2024 Basophil, Absolute 0.1 10 3/mcL Normal 0.0-0.3 [facility] Comment on above: Performed By: #### C BC, ADIFF, ESR, URIC, GFR, CRP, CMP, ANEU, RF, TSHR #### [address] [address] Basophils/100 WBC (Bld) 0.7 % Normal 0.0-2.5 [facility] Comment on above: Performed By: #### C BC, ADIFF, ESR, URIC, GFR, CRP, CMP, ANEU, RF, TSHR #### [address] [address] Eosinophil, Absolute 0.3 10 3/mcL Normal 0.0-0.7 [facility] Comment on above: Performed By: #### C BC, ADIFF, ESR, URIC, GFR, CRP, CMP, ANEU, RF, TSHR #### [address] [address] Eosinophils/100 WBC (Bld) 3.7 % Normal 0.0-6.0 [facility] Comment on above: Performed By: #### C BC, ADIFF, ESR, URIC, GFR, CRP, CMP, ANEU, RF, TSHR #### [address] [address] Lymphocyte, Absolute 1.8 10 3/mcL Normal 0.9-4.3 [facility] Comment on above: Performed By: #### C BC, ADIFF, ESR, URIC, GFR, CRP, CMP, ANEU, RF, TSHR #### [address] [address] Lymphocytes/100 WBC (Bld) 21.0 % Normal 20.0-40.0 [facility] Comment on above: Performed By: #### C BC, ADIFF, ESR, URIC, GFR, CRP, CMP, ANEU, RF, TSHR #### [address] [address] Monocyte, Absolute 0.7 10 3/mcL Normal 0.1-1.4 [facility] Comment on above: Performed By: #### C BC, ADIFF, ESR, URIC, GFR, CRP, CMP, ANEU, RF, TSHR #### [address] [address] Monocytes/100 WBC (Bld) 8.6 % Normal 2.0-13.0 [facility] Comment on above: Performed By: #### C BC, ADIFF, ESR, URIC, GFR, CRP, CMP, ANEU, RF, TSHR #### [address] [address] Neutrophils/100 WBC (Bld) 66.0 % Normal 50.0-75.0 [facility] Comment on above: Performed By: #### C BC, ADIFF, ESR, URIC, GFR, CRP, CMP, ANEU, RF, TSHR #### [address] [address] .GFRon 07-20-2024 GFR >60 Normal [facility] Comment on above: Result Comment: GFR Population mean for , Non- Americans Ages 20-29 = 116 mL/min/1.73 sq.m. Ages 30-39 = 107 mL/min/1.73 sq.m. Ages 40-49 = 99 mL/min/1.73 sq.m. Ages 50-59 = 93 mL/min/1.73 sq.m. Ages 60-69 = 85 mL/min/1.73 sq.m. Ages 70+ = 75 mL/min/1.73 sq.m. Chronic Kidney Disease: Less than 60 mL/min/1.73 square meters End Stage Renal Disease: Less than 15 mL/min/1.73 square meters Performed By: #### C BC, ADIFF, ESR, URIC, GFR, CRP, CMP, ANEU, RF, TSHR #### [address] [address] GFR Non- >60 Normal [facility] Comment on above: Result Comment: GFR Population mean for , Non- Americans Ages 20-29 = 116 mL/min/1.73 sq.m. Ages 30-39 = 107 mL/min/1.73 sq.m. Ages 40-49 = 99 mL/min/1.73 sq.m. Ages 50-59 = 93 mL/min/1.73 sq.m. Ages 60-69 = 85 mL/min/1.73 sq.m. Ages 70+ = 75 mL/min/1.73 sq.m. Chronic Kidney Disease: Less than 60 mL/min/1.73 square meters End Stage Renal Disease: Less than 15 mL/min/1.73 square meters Performed By: #### C BC, ADIFF, ESR, URIC, GFR, CRP, CMP, ANEU, RF, TSHR #### [address] [address] .NEUABSon 07-20-2024 Neutrophil, Absolute 5.5 10 3/mcL Normal 2.3-8.1 [facility] Comment on above: Performed By: #### C BC, ADIFF, ESR, URIC, GFR, CRP, CMP, ANEU, RF, TSHR #### [place] [id number] CBCon 07-20-2024 Erythrocyte distribution width (RBC) [Ratio] 13.4 % Normal 11.5-15.5 [facility] Comment on above: Performed By: #### C BC, ADIFF, ESR, URIC, GFR, CRP, CMP, ANEU, RF, TSHR #### [place] [address] Hematocrit (Bld) [Volume fraction] 42.8 % Normal 40.0-52.0 [facility] Comment on above: Performed By: #### C BC, ADIFF, ESR, URIC, GFR, CRP, CMP, ANEU, RF, TSHR #### [place] [address] Hgb 14.6 G/dL Normal 13.0-17.5 [facility] Comment on above: Performed By: #### C BC, ADIFF, ESR, URIC, GFR, CRP, CMP, ANEU, RF, TSHR #### [place] [address] MCH (RBC) [Entitic mass] 31.0 pg Normal 27.0-33.0 [facility] Comment on above: Performed By: #### C BC, ADIFF, ESR, URIC, GFR, CRP, CMP, ANEU, RF, TSHR #### [place] [address] MCHC 34.0 G/dL Normal 32.0-36.0 [facility] Comment on above: Performed By: #### C BC, ADIFF, ESR, URIC, GFR, CRP, CMP, ANEU, RF, TSHR #### [place] [id number] MCV (RBC) [Entitic vol] 91.0 fL Normal 81.0-100.0 [facility] Comment on above: Performed By: #### C BC, ADIFF, ESR, URIC, GFR, CRP, CMP, ANEU, RF, TSHR #### [place] [id number] Platelet 278 10 3/mcL Normal 150-450 [facility] Comment on above: Performed By: #### C BC, ADIFF, ESR, URIC, GFR, CRP, CMP, ANEU, RF, TSHR #### [place] [id number] Platelet mean volume (Bld) [Entitic vol] 9.2 fL Normal 6.4-10.5 [facility] Comment on above: Performed By: #### C BC, ADIFF, ESR, URIC, GFR, CRP, CMP, ANEU, RF, TSHR #### [place] [id number] RBC 4.70 10 6/mcL Normal 4.50-6.00 [facility] Comment on above: Performed By: #### C BC, ADIFF, ESR, URIC, GFR, CRP, CMP, ANEU, RF, TSHR #### [place] [id number] WBC 8.4 10 3/mcL Normal 4.5-10.8 [facility] Comment on above: Performed By: #### C BC, ADIFF, ESR, URIC, GFR, CRP, CMP, ANEU, RF, TSHR #### [place] [id number] CMPon 07-20-2024 Albumin Level 3.7 G/dL Normal 3.2-4.8 [facility] Comment on above: Performed By: #### C BC, ADIFF, ESR, URIC, GFR, CRP, CMP, ANEU, RF, TSHR #### [place] [id number] Albumin/Globulin [Mass ratio] 1.1 {ratio} Normal 0.9-1.6 [facility] Comment on above: Performed By: #### C BC, ADIFF, ESR, URIC, GFR, CRP, CMP, ANEU, RF, TSHR #### [place] [address] ALP [Catalytic activity/Vol] 97 U/L Normal 38-126 [facility] Comment on above: Performed By: #### C BC, ADIFF, ESR, URIC, GFR, CRP, CMP, ANEU, RF, TSHR #### [place] [address] ALT [Catalytic activity/Vol] 33 U/L Normal 12-55 [facility] Comment on above: Performed By: #### C BC, ADIFF, ESR, URIC, GFR, CRP, CMP, ANEU, RF, TSHR #### [place] [address] AST [Catalytic activity/Vol] 33 U/L Normal 8-34 [facility] Comment on above: Performed By: #### C BC, ADIFF, ESR, URIC, GFR, CRP, CMP, ANEU, RF, TSHR #### [place] [address] Bili Total 0.50 mg/dL Normal 0.20-1.20 [facility] Comment on above: Result Comment: Use of this assay is not recommended for patients undergoing treatment with eltrombopag due to the potential for falsely elevated results. Performed By: #### C BC, ADIFF, ESR, URIC, GFR, CRP, CMP, ANEU, RF, TSHR #### [place] [address] BUN/Creatinine Ratio 24.2 ratio High 10.0-22.0 [facility] Comment on above: Performed By: #### C BC, ADIFF, ESR, URIC, GFR, CRP, CMP, ANEU, RF, TSHR #### [place] [address] Calcium [Mass/Vol] 10.0 mg/dL Normal 8.7-10.4 [facility] Comment on above: Performed By: #### C BC, ADIFF, ESR, URIC, GFR, CRP, CMP, ANEU, RF, TSHR #### [place] [address] Chloride [Moles/Vol] 108 mmol/L Normal 98-110 [facility] Comment on above: Performed By: #### C BC, ADIFF, ESR, URIC, GFR, CRP, CMP, ANEU, RF, TSHR #### [address] [address] CO2 [Moles/Vol] 27 mmol/L Normal 22-32 [facility] Comment on above: Performed By: #### C BC, ADIFF, ESR, URIC, GFR, CRP, CMP, ANEU, RF, TSHR #### [address] [address] Creatinine [Mass/Vol] 0.99 mg/dL Normal 0.60-1.40 [facility] Comment on above: Result Comment: Test ing performed on [employer] analyzer using enzymatic creatinine methodology. Performed By: #### C BC, ADIFF, ESR, URIC, GFR, CRP, CMP, ANEU, RF, TSHR #### [place] [id number] Electrolyte Balance 8.0 mEq/L Normal 4.0-15.0 [facility] Comment on above: Performed By: #### C BC, ADIFF, ESR, URIC, GFR, CRP, CMP, ANEU, RF, TSHR #### [address] [address] Globulin 3.4 G/dL Normal 1.5-3.8 [facility] Comment on above: Performed By: #### C BC, ADIFF, ESR, URIC, GFR, CRP, CMP, ANEU, RF, TSHR #### [address] [address] Glucose [Mass/Vol] 78 mg/dL Low 82-115 [facility] Comment on above: Performed By: #### C BC, ADIFF, ESR, URIC, GFR, CRP, CMP, ANEU, RF, TSHR #### [address] [address] Potassium [Moles/Vol] 4.6 mmol/L Normal 3.5-5.0 [facility] Comment on above: Performed By: #### C BC, ADIFF, ESR, URIC, GFR, CRP, CMP, ANEU, RF, TSHR #### [address] [address] Sodium [Moles/Vol] 143 mmol/L Normal 136-145 [facility] Comment on above: Performed By: #### C BC, ADIFF, ESR, URIC, GFR, CRP, CMP, ANEU, RF, TSHR #### [address] [address] Total Protein 7.1 G/dL Normal 5.7-8.2 [facility] Comment on above: Result Comment: No te - New Reference Range in effect 20 Performed By: #### C BC, ADIFF, ESR, URIC, GFR, CRP, CMP, ANEU, RF, TSHR #### [address] [address] Urea nitrogen [Mass/Vol] 24.0 mg/dL High 8.0-22.0 [facility] Comment on above: Performed By: #### C BC, ADIFF, ESR, URIC, GFR, CRP, CMP, ANEU, RF, TSHR #### [address] [address] CRPon 07-20-2024 C-Reactive Protein 1.2 mg/dL High 0.0-1.0 [facility] Comment on above: Result Comment: No te - New Reference Range in effect 20 Performed By: #### C BC, ADIFF, ESR, URIC, GFR, CRP, CMP, ANEU, RF, TSHR #### [address] [address] ESRon 07-20-2024 Erythrocyte Sed Rate 24 mm/hr High 0-20 [facility] Comment on above: Performed By: #### C BC, ADIFF, ESR, URIC, GFR, CRP, CMP, ANEU, RF, TSHR #### [address] [address] TSHRon 07-20-2024 TSH 2.980 mIU/mL Normal 0.550-4.780 [facility] Comment on above: Result Comment: No te - New Reference Range in effect 20 Performed By: #### C BC, ADIFF, ESR, URIC, GFR, CRP, CMP, ANEU, RF, TSHR #### [address] [address] URICon 07-20-2024 Uric Acid Lvl 7.2 mg/dL Normal 3.7-9.2 [facility] Comment on above: Result Comment: No te - New Reference Range in effect 20 Performed By: #### C BC, ADIFF, ESR, URIC, GFR, CRP, CMP, ANEU, RF, TSHR #### [address] [address] [address] THORAX W/O CONTRASTon CT THORAX W/O CONTRAST ORIGINAL EXAMINATION: CT CHEST WITHOUT CONTRAST 06/09/2024 3:08 pm HISTORY: ORDERING SYSTEM PROVIDED HISTORY: Reason for Exam: lung crackles on exam pt states sob for about a year. denies cp.. TECHNIQUE: Multiple-row detector helical CT examination of the thorax without IV contrast. Axial, sagittal, and coronal reconstructed images. This exam was performed according to the departmental dose-optimization program which includes automated exposure control, adjustment of the mA and/or kV according to patient size and/or use of iterative reconstruction technique. COMPARISON: Radiograph, 08/24/2023 FINDINGS: The heart is normal in size. Severe coronary artery calcifications seen. No pericardial effusion. The great vessels are normal in caliber. There is no visible lymphadenopathy within the limits imposed by lack of IV contrast. Borderline lymph nodes seen in the mediastinum. A lymph node in the lower right paratracheal space measures 10 mm in short axis on image 43. An AP window lymph node on image 44 measures 11 mm in short axis. Subpleural calcified nodule seen in the left upper lobe on image 38. A 3 mm left upper lobe nodule is seen on image 40. Scarring noted in the inferior lingula. There is a calcified nodule in the right upper lobe on image 56. Scarring seen in the right middle lobe. Subpleural consolidative density in the medial right lower lobe is most likely related to scarring. There is a 2 mm right lower lobe nodule on image 63. Plaque like lesions seen in the pleural surface along the right diaphragmatic pleura. An atypical cyst in the anterior left upper lobe on image 47 measures 4 mm. Other micro nodules visible. There is no pneumothorax or pleural fluid. Mild bronchiectasis. No aggressive osseous lesions identified. Multilevel degenerative changes identified in the spine. Borderline lymph nodes seen in the upper abdomen. A celiac axis lymph node measures 1 cm in short axis on image 103. Lymph node near the gastrohepatic ligament on image 101 measures 9.5 mm in short axis. IMPRESSION: Borderline lymph nodes in the thorax and abdomen could be reactive but are nonspecific. Follow-up CT with contrast advised in 3 months. The atypical cyst in the left upper lobe can also be reassessed at that time. Multiple pulmonary nodules. Most significant: Left solid pulmonary nodule within the upper lobe measuring 3 mm. Per Fleischner Society Guidelines, if patient is low risk for malignancy, no routine follow-up imaging is recommended. If patient is high risk for malignancy, a non-contrast Chest CT at 12 months is optional. If performed and the nodule is stable at 12 months, no further follow-up is recommended. These guidelines do not apply to immunocompromised patients and patients with cancer. Follow up in patients with significant comorbidities as clinically warranted. For lung cancer screening, adhere to Lung-RADS guidelines. Reference: Radiology. 2017; 284(1):228-43. Atherosclerosis with prominent coronary artery calcifications Irregular multifocal scarring in the lungs Interpreted by: Jc Negron MD Preliminary Report By: Jc Negron MD Electronically signed By Jc Negron MD Dictated Date: 06/12/2024 9:02:55 AM Prelim Date: 06/12/2024 9:13:54 AM Sign Date: 06/12/2024 9:13:54 AM Ordering Provider: CONCEPCION GRAJEDA [facility] ([place]) XR CHEST 2 VIEWSon 3 XR CHEST 2 VIEWS ORIGINAL EXAMINATION: TWO XRAY VIEWS OF THE CHEST08/24/2023 3:46 pm XR Chest two views COMPARISON: None HISTORY: ORDERING SYSTEM PROVIDED HISTORY: Reason for Exam: CHEST CONGESTION, , cough FINDINGS: No suspicious nodule, acute infiltrate, consolidation,mass, pneumothorax, pleural fluid, or vascular congestion is seen. Heart size and mediastinal contours are within normal limits for age and projection. No acute skeletal abnormality. IMPRESSION: No acute cardiopulmonary process. Interpreted by: Garland Elliott MD Preliminary Report By: Garland Elliott MD Electronically signed By Garland Elliott MD Dictated Date: 08/28/2023 11:23:33 AM Prelim Date: 08/28/2023 11:24:11 AM Sign Date: 08/28/2023 11:24:11 AM Ordering Provider: CONCEPCION Montanez [facility] ([place]) .Auto Diffon 08-26-2023 Basophil, Absolute 0.0 10 3/mcL Normal 0.0-0.3 [facility] ([place]) Comment on above: Performed By: #### L IPID, HFP, BMP, CBC, ADIFF, GFR, ANEU #### [address] [address] Basophils/100 WBC (Bld) 0.7 % Normal 0.0-2.5 [facility] ([place]) Comment on above: Performed By: #### L IPID, HFP, BMP, CBC, ADIFF, GFR, ANEU #### [address] [address] Eosinophil, Absolute 0.4 10 3/mcL Normal 0.0-0.7 [facility] ([place]) Comment on above: Performed By: #### L IPID, HFP, BMP, CBC, ADIFF, GFR, ANEU #### [address] [address] Eosinophils/100 WBC (Bld) 5.4 % Normal 0.0-6.0 [facility] ([place]) Comment on above: Performed By: #### L IPID, HFP, BMP, CBC, ADIFF, GFR, ANEU #### [address] [address] Lymphocyte, Absolute 2.0 10 3/mcL Normal 0.9-4.3 [facility] ([place]) Comment on above: Performed By: #### L IPID, HFP, BMP, CBC, ADIFF, GFR, ANEU #### [address] [address] Lymphocytes/100 WBC (Bld) 31.3 % Normal 20.0-40.0 [facility] ([place]) Comment on above: Performed By: #### L IPID, HFP, BMP, CBC, ADIFF, GFR, ANEU #### [address] [address] Monocyte, Absolute 0.6 10 3/mcL Normal 0.1-1.4 [facility] ([place]) Comment on above: Performed By: #### L IPID, HFP, BMP, CBC, ADIFF, GFR, ANEU #### [address] [address] Monocytes/100 WBC (Bld) 9.7 % Normal 2.0-13.0 [facility] ([place]) Comment on above: Performed By: #### L IPID, HFP, BMP, CBC, ADIFF, GFR, ANEU #### [address] [address] Neutrophils/100 WBC (Bld) 52.9 % Normal 50.0-75.0 [facility] ([place]) Comment on above: Performed By: #### L IPID, HFP, BMP, CBC, ADIFF, GFR, ANEU #### [address] [address] .GFRon 08-26-2023 GFR >60 Normal [facility] ([place]) Comment on above: Result Comment: GFR Population mean for , Non- Americans Ages 20-29 = 116 mL/min/1.73 sq.m. Ages 30-39 = 107 mL/min/1.73 sq.m. Ages 40-49 = 99 mL/min/1.73 sq.m. Ages 50-59 = 93 mL/min/1.73 sq.m. Ages 60-69 = 85 mL/min/1.73 sq.m. Ages 70+ = 75 mL/min/1.73 sq.m. Chronic Kidney Disease: Less than 60 mL/min/1.73 square meters End Stage Renal Disease: Less than 15 mL/min/1.73 square meters Performed By: #### L IPID, HFP, BMP, CBC, ADIFF, GFR, ANEU #### [address] [address] GFR Non- 57 ml/min/1.73sqm Normal [facility] ([place]) Comment on above: Result Comment: GFR Population mean for , Non- Americans Ages 20-29 = 116 mL/min/1.73 sq.m. Ages 30-39 = 107 mL/min/1.73 sq.m. Ages 40-49 = 99 mL/min/1.73 sq.m. Ages 50-59 = 93 mL/min/1.73 sq.m. Ages 60-69 = 85 mL/min/1.73 sq.m. Ages 70+ = 75 mL/min/1.73 sq.m. Chronic Kidney Disease: Less than 60 mL/min/1.73 square meters End Stage Renal Disease: Less than 15 mL/min/1.73 square meters Performed By: #### L IPID, HFP, BMP, CBC, ADIFF, GFR, ANEU #### [address] [address] .NEUABSon 08-26-2023 Neutrophil, Absolute 3.5 10 3/mcL Normal 2.3-8.1 [facility] ([place]) Comment on above: Performed By: #### L IPID, HFP, BMP, CBC, ADIFF, GFR, ANEU #### [address] [address] BMPon 08-26-2023 BUN/Creatinine Ratio 19.5 ratio Normal 10.0-22.0 [facility] ([place]) Comment on above: Performed By: #### L IPID, HFP, BMP, CBC, ADIFF, GFR, ANEU #### [address] [address] Calcium [Mass/Vol] 10.2 mg/dL Normal 8.7-10.4 [facility] ([place]) Comment on above: Performed By: #### L IPID, HFP, BMP, CBC, ADIFF, GFR, ANEU #### [address] [address] Chloride [Moles/Vol] 109 mmol/L Normal 98-110 [facility] ([place]) Comment on above: Performed By: #### L IPID, HFP, BMP, CBC, ADIFF, GFR, ANEU #### [address] [address] CO2 [Moles/Vol] 30 mmol/L Normal 22-32 [facility] ([place]) Comment on above: Performed By: #### L IPID, HFP, BMP, CBC, ADIFF, GFR, ANEU #### [address] [address] Creatinine [Mass/Vol] 1.23 mg/dL Normal 0.60-1.40 [facility] ([place]) Comment on above: Performed By: #### L IPID, HFP, BMP, CBC, ADIFF, GFR, ANEU #### [address] [address] Electrolyte Balance 3.0 mEq/L Low 4.0-15.0 [facility] ([place]) Comment on above: Performed By: #### L IPID, HFP, BMP, CBC, ADIFF, GFR, ANEU #### [address] [address] Glucose [Mass/Vol] 92 mg/dL Normal 82-115 [facility] ([place]) Comment on above: Performed By: #### L IPID, HFP, BMP, CBC, ADIFF, GFR, ANEU #### [address] [address] Potassium [Moles/Vol] 4.3 mmol/L Normal 3.5-5.0 [facility] ([place]) Comment on above: Performed By: #### L IPID, HFP, BMP, CBC, ADIFF, GFR, ANEU #### [address] [address] Sodium [Moles/Vol] 142 mmol/L Normal 136-145 [facility] ([place]) Comment on above: Performed By: #### L IPID, HFP, BMP, CBC, ADIFF, GFR, ANEU #### [address] [address] Urea nitrogen [Mass/Vol] 24.0 mg/dL High 8.0-22.0 [facility] ([place]) Comment on above: Performed By: #### L IPID, HFP, BMP, CBC, ADIFF, GFR, ANEU #### [address] [address] CBCon 11-02-2023 Erythrocyte distribution width (RBC) [Ratio] 13.1 % Normal 11.5-15.5 [facility] ([place]) Comment on above: Performed By: #### L IPID, HFP, BMP, CBC, ADIFF, GFR, ANEU #### [place] [address] Hematocrit (Bld) [Volume fraction] 44.8 % Normal 40.0-52.0 [facility] ([place]) Comment on above: Performed By: #### L IPID, HFP, BMP, CBC, ADIFF, GFR, ANEU #### [place] [address] Hgb 15.0 G/dL Normal 13.0-17.5 [facility] ([place]) Comment on above: Performed By: #### L IPID, HFP, BMP, CBC, ADIFF, GFR, ANEU #### [place] [address] MCH (RBC) [Entitic mass] 30.6 pg Normal 27.0-33.0 [facility] ([place]) Comment on above: Performed By: #### L IPID, HFP, BMP, CBC, ADIFF, GFR, ANEU #### [place] [address] MCHC 33.5 G/dL Normal 32.0-36.0 [facility] ([place]) Comment on above: Performed By: #### L IPID, HFP, BMP, CBC, ADIFF, GFR, ANEU #### [place] [address] MCV (RBC) [Entitic vol] 91.4 fL Normal 81.0-100.0 [facility] ([place]) Comment on above: Performed By: #### L IPID, HFP, BMP, CBC, ADIFF, GFR, ANEU #### [place] [address] Platelet 275 10 3/mcL Normal 150-450 [facility] ([place]) Comment on above: Performed By: #### L IPID, HFP, BMP, CBC, ADIFF, GFR, ANEU #### [place] [address] Platelet mean volume (Bld) [Entitic vol] 8.9 fL Normal 6.4-10.5 [facility] ([place]) Comment on above: Performed By: #### L IPID, HFP, BMP, CBC, ADIFF, GFR, ANEU #### [place] [address] RBC 4.91 10 6/mcL Normal 4.50-6.00 [facility] ([place]) Comment on above: Performed By: #### L IPID, HFP, BMP, CBC, ADIFF, GFR, ANEU #### [place] [address] WBC 6.5 10 3/mcL Normal 4.5-10.8 [facility] ([place]) Comment on above: Performed By: #### L IPID, HFP, BMP, CBC, ADIFF, GFR, ANEU #### [address] 08-26-2023 Bili Indirect 0.3 mg/dL Normal 0.1-10.0 [facility] ([place]) Comment on above: Performed By: #### L IPID, HFP, BMP, CBC, ADIFF, GFR, ANEU #### [place] [address] Albumin Level 3.9 G/dL Normal 3.2-4.8 [facility] ([place]) Comment on above: Performed By: #### L IPID, HFP, BMP, CBC, ADIFF, GFR, ANEU #### [place] [address] Albumin/Globulin [Mass ratio] 1.3 {ratio} Normal 0.9-1.6 [facility] ([place]) Comment on above: Performed By: #### L IPID, HFP, BMP, CBC, ADIFF, GFR, ANEU #### [place] [address] ALP [Catalytic activity/Vol] 49 U/L Normal 38-126 [facility] ([place]) Comment on above: Performed By: #### L IPID, HFP, BMP, CBC, ADIFF, GFR, ANEU #### [address] [address] ALT [Catalytic activity/Vol] 20 U/L Normal 12-55 [facility] ([place]) Comment on above: Performed By: #### L IPID, HFP, BMP, CBC, ADIFF, GFR, ANEU #### [address] [address] AST [Catalytic activity/Vol] 28 U/L Normal 8-34 [facility] ([place]) Comment on above: Performed By: #### L IPID, HFP, BMP, CBC, ADIFF, GFR, ANEU #### [address] [address] Bili Direct 0.2 mg/dL Normal 0.0-0.4 [facility] ([place]) Comment on above: Result Comment: Use of this assay is not recommended for patients undergoing treatment with eltrombopag due to the potential for falsely elevated results. Performed By: #### L IPID, HFP, BMP, CBC, ADIFF, GFR, ANEU #### [place] [id number] Bili Total 0.50 mg/dL Normal 0.20-1.20 [facility] ([place]) Comment on above: Result Comment: Use of this assay is not recommended for patients undergoing treatment with eltrombopag due to the potential for falsely elevated results. Performed By: #### L IPID, HFP, BMP, CBC, ADIFF, GFR, ANEU #### [address] [address] Globulin 3.1 G/dL Normal 1.5-3.8 [facility] ([place]) Comment on above: Performed By: #### L IPID, HFP, BMP, CBC, ADIFF, GFR, ANEU #### [address] [address] Total Protein 7.0 G/dL Normal 5.7-8.2 [facility] ([place]) Comment on above: Result Comment: No te - New Reference Range in effect 20 Performed By: #### L IPID, HFP, BMP, CBC, ADIFF, GFR, ANEU #### [address] [address] LIPIDon 08-26-2023 Cholesterol [Mass/Vol] 136 mg/dL Normal 50-199 [facility] ([place]) Comment on above: Result Comment: Chol esterol Reference Interval: Less than 200 Desirable 200-239 Borderline high risk 240 and above High risk Performed By: #### L IPID, HFP, BMP, CBC, ADIFF, GFR, ANEU #### [address] [address] Cholesterol in HDL [Mass/Vol] 46 mg/dL Normal 40-59 [facility] ([place]) Comment on above: Performed By: #### L IPID, HFP, BMP, CBC, ADIFF, GFR, ANEU #### [address] [address] Cholesterol in LDL [Mass/Vol] 65 mg/dL Normal 0-129 [facility] ([place] Comment on above: Performed By: #### L IPID, HFP, BMP, CBC, ADIFF, GFR, ANEU #### [address] [address] Triglyceride [Mass/Vol] 124 mg/dL Normal 3-149 [facility] ([place]) Comment on above: Performed By: #### L IPID, HFP, BMP, CBC, ADIFF, GFR, ANEU #### [address] [address] UA DIP, URINE (POC)on 2022 BILIRUBIN UA (POCT) Negative Negative [facility] CLARITY UA (POCT) [facility] COLOR UA (POCT) Yellow [facility] GLUCOSE UA (POCT) Negative Negative mg/dL [facility] Hemoglobin Ql (U) Negative Negative [facility] KETONE UA (POCT) Negative Negative mg/dL [facility] LEUKOCYTES UA (POCT) Negative Negative [facility] NITRITE UA (POCT) Negative Negative [facility] PH UA (POCT) 5.5 4.5 - 8.0 [facility] Protein Ql (U) Negative Negative mg/dL [facility] SPECIFIC GRAVITY UA (POCT) 1.025 1.005 - 1.030 [facility] UROBILINOGEN UA (POCT) 0.2 E.U./dL Normal E.U./dL [facility] BLADDER SCAN [facility] Vital Signs Date Time Vital Sign Value Performing Clinician Yoselyni daisy 06-18-2023 14:54-0400 Diastolic blood pressure 85 mm[Hg] Dav Luke MD Work Phone: [facility] 06-18-2023 14:54-0400 Heart rate 75 /min Dav Luke MD Work Phone: [facility] 06-18-2023 14:54-0400 SaO2% (BldA) [Mass fraction] 99 % Dav Luke MD Work Phone: [facility] 06-18-2023 14:54-0400 Systolic blood pressure 133 mm[Hg] Dav Luke MD Work Phone: [facility] Encounters Encounter Date Encounter Type Care Provider Facility Start: 03-08-2025 End: 03-08-[address] BASIL GALLAGHER MD Facility:[facility] Start: 03-08-2025 End: 03-08-[address] BASIL GALLAGHER MD [facility] Start: 03-07-2025 End: 03-07-2025 ambulatory BASIL GALLAGHER Facility:[id number] Start: 01-23-2025 End: 01-23-2025 ambulatory BASIL GALLAGHER Facility:[id number] Start: 12-01-2024 End: 12-01-2024 ambulatory BASIL Naga GALLAGHER Facility:[id number] Start: 11-22-2024 End: 11-22-2024 ambulatory PANFILO GARCIA MD Facility:A Start: 11-21-2024 End: 11-21-[address] CONCEPCION GRAJEDA MD Facility:A Start: 11-20-2024 End: 11-20-2024 Patient encounter procedure Dav Luke MD Work Phone: Urology Comment on above: Benign prostatic hyp erplasia with weak urinary stream (Primary Dx); Elevated PSA; Prostate cancer screening; Screening for genitourinary condition Start: 11-20-2024 End: 11-20-2024 ambulatory DAV LUKE Facility:[id number] Start: 11-20-2024 End: 11-20-[address] CONCEPCION GRAJEDA MD Facility:A Start: 11-09-2024 End: 11-13-2024 Telephone encounter Dav Luek MD Work Phone: Urology Start: 09-19-2024 End: 09-19-2024 ambulatory [facility] Facility:[id number] Start: 08-04-2024 End: 08-04-2024 ambulatory [facility] Facility:[facility] Start: 07-20-2024 End: 07-24-[address] CONCEPCION GRAJEDA MD Facility:A Start: 06-09-2024 End: 06-09-[address] CONCEPCION GRAJEDA MD Facility:A Start: 05-30-2024 End: 05-30-[address] CONCEPCION GRAJEDA MD Facility:A Start: 03-27-2024 Refill Dav garcia MD Work Phone: Urology Comment on above: Refill Request Start: 08-26-2023 End: 08-30-[address] CONCEPCION GRAJEDA MD Facility:A Start: 08-24-2023 End: 08-24-[address] CONCEPCION GRAJEDA MD Facility:A Start: 06-18-2023 End: 06-18-2023 Patient encounter procedure Dav Luke MD Work Phone: Urology Comment on above: Benign prostatic hyp erplasia with weak urinary stream (Primary Dx); Prostate cancer screening; Screening for genitourinary condition Procedures Date Procedure Procedure Detail Performing Clinician Start: 11-20-2024 BLADDER SCAN Dav gong MD Work Phone: Start: 11-20-2024 Urnls dip stick/tabl et rgnt auto w/o microscopy Dav Luke MD Work Phone: Start: 06-18-2023 BLADDER SCAN Dav gong MD Work Phone: Start: 06-18-2023 Urnls dip stick/tabl et rgnt auto w/o microscopy Dav Luke MD Work Phone: Start: 10-25-2021 Benign neoplasm of n rafaela (disorder) DR BASIL GALLAGHER MD Plan of Treatment Date Care Activity Detail Author Start: 01-03-2032 Urine microalbumin profile DTaP,Tdap,Td Vaccine (3 - Td or Tdap) [facility] Start: 09-19-2027 Diabetes Screening Diabetes Screenin g [facility] Start: 11-20-2025 End: 11-20-2025 Patient encounter procedure 11/20/2025 1:00 PM EST Office Visit Urology [address] [place], [place] [id number] Dav Luke MD [address] [place] [id number] 1 year f/u Urology Comment on above: 1 year f/u Start: 11-20-2024 End: 11-20-2024 Patient encounter procedure 11/20/2024 1:00 PM EST Office Visit Urology [address] [place], [place] [address] [place] [address] Dav Luke MD [address] [place] [address] referral for a annual visit, encounter in chart Urology Comment on above: referral for a annual visit, encounter in chart Start: 10-25-2024 Advance Directive Discussion Advance Directive Discussion [facility] Start: 06-25-2024 Covid-19 Vaccine ( season) Covid-19 Vaccine ( season) [facility] Start: 06-25-2024 Influenza vaccination Influenz a Vaccine (Season Ended) [facility] Start: 10-25-2023 Advance Directive Discussion Advance Directive Discussion [facility] Start: 10-25-2023 Behavioral Health Screening Behavioral Health Screening [facility] Start: 06-25-2023 Covid-19 Vaccine () Covid-19 Vaccine ( season) [facility] Start: 06-25-2023 Influenza vaccination INFLUENZA (#1) [facility] Start: 06-19-2023 End: 08-19-2023 PSA/PROSTSPECAG SCRN PSA/PROSTSPECAG SCRN Lab Routine Prostate cancer screening Expected: 06/19/2023, Expires: 08/19/2023 [facility] Work Phone: Comment on above: Expected: 06/19/2023 , Expires: 08/19/2023 Start: 10-25-2022 ADVANCE DIRECTIVE DISCUSSION ADVANCE DIRECTIVE DISCUSSION [facility] Start: 10-25-2022 DEPRESSION ASSESSMENT DEPRESSION ASS ESSMENT [facility] Start: 2013 Pneumococcal Vaccine : 65+ (1 of 1 - PCV) Pneumococcal Vaccine: 65+ (1 of 1 - PCV) [facility] Start: 2013 PNEUMOCOCCAL: 65+ (1 - PCV) PNEUMOCOCCAL: 65+ (1 - PCV) [facility] Start: 2008 RSV Vaccine (1 - 1-d ose 60+ series) RSV Vaccine (1 - 1-dose 60+ series) [facility] Start: 1998 SHINGRIX VACCINE (1 of 2) SHINGRIX VACCINE (1 of 2) [facility] Start: 1993 COLOGUARD (FIT-DNA) COLOGUARD (FIT-D NA) [facility] Start: 1993 Colonoscopy COLONOSCOPY [facility] Start: 1993 COLORECTAL CANCER SCREENING COLORECTAL CANCER SCREENING [facility] Start: [address] COLONOGRAPHY [facility] Start: 1993 DIABETES SCREEN DIABETES SCREEN [facility] Start: 1993 Diabetes Screening Diabetes Screenin g [facility] Start: 1993 FECAL OCCULT BLOOD FECAL OCCULT BLOO D [facility] Start: 1993 Screening for malign ant neoplasm of colon [facility] Start: 1993 SIGMOIDOSCOPY SIGMOIDOSCOPY [facility] Start: 1983 Lipid panel Lipid Screening [facility] Start: 1983 LIPID SCREEN LIPID SCREEN [facility] Start: 1967 Urine microalbumin profile [facility] Start: 1966 Anxiety Screening Anxiety Screening [facility] Start: 1966 Depression Screening Depression Scre ening [facility] Start: 1966 HEPATITIS C SCREENING HEPATITIS C [facility] Start: 1966 Hepatitis C screening Hepatitis C [facility] Start: 1948 COVID-19 VACCINE (#1) COVID-19 VACCI NE (#1) [facility] Start: 1948 ABDOMINAL AORTIC ANEURYSM SCREENING ABDOMINAL AORTIC ANEURYSM SCREENING [facility] CYSTO/TRUS ONLY CYSTO/TRUS ONLY Procedures Routine Benign prostatic hyperplasia with weak urinary stream Ordered: 06/18/2023 [facility] Work Phone: Comment on above: [facility]: [facility] Immunization Date Immunization Notes Care Provider Fa [facility] 06-28-2024 influenza, high dose seasonal, preservative-free; Translations: [Fluad PF Prefilled Syringe ] DR BASIL GALLAGHER MD [facility] 01-20-2024 SARS-CoV-2 (COVID-19 ) [id number] DR BASIL GALLAGHER MD [facility] [employer] 07-30-2023 influenza virus vaccine, unspecified formulation DR BASIL GALLAGHER MD [facility] [employer] 07-30-2023 RSV vaccine preF3, recombinant DR BASIL GALLAGHER MD [facility] 07-30-2023 SARS-CoV-2 (COVID-19 ) [id number] DR BASIL GALLAGHER MD [facility] [employer] Payers Date Payer Category Payer Self-pay 2023 Medicare [id number] 2023 Private Health Insurance [id number] 1948 Unknown [id number] 2.16.8 [id number] 1948 Unknown [id number] 2.16.8 [id number] 1948 Unknown [id number] 2.16.8 [id number] 1948 Unknown [id number] 2.16.8 [id number] 1948 Unknown [id number] 2.16.8 [id number] 1948 Unknown [id number] 2.16.8 [id number] 1948 Unknown [id number] 2.16.8 [id number] 1948 Unknown [id number] 2.16.8 [id number] 1948 Unknown [id number] 2.16.8 [id number] Unknown [id number] 2.16.8 [id number] Social History Date Type Detail Facility Start: 06-18-2023 End: 05-16-2024 Tobacco smoking status NHIS Ex-smoker [facility] History of tobacco use Current smoker [facility] History of tobacco use Cigarette Smoker [facility] Start: 06-18-2023 Tobacco use and exposure Smoke less tobacco non-user [facility] Start: 06-18-2023 Alcohol intake Not Asked [facility] Start: 06-18-2023 End: 11-20-2024 [facility] of [facility] Start: 06-18-2023 End: 11-20-2024 Tobacco use panel [facility] National Score (1-10 0), lower number is lower risk 64 [facility] Start: 06-18-2023 Alcohol Comment once a month [facility] Start: 1950 Sex Assigned At Male [facility] Start: 11-20-2024 Alcoholic beverage intake Life time non-drinker (finding) [facility] Sexual O[facility] Sex Male (finding) Meally Josr michelle Clinical Notes 06-18-2023 to 03-08-2025 Note Date & Type Note Facility 03-08-2025 Note Exam Date Time Procedure Performing Provider Status 03/08/25 8:07 AM US Abdomen Limited JC ZARCO DO; Auth (Verified) [id number] ORIGINAL EXAMINATION: LIMITED ABDOMINAL ULTRASOUND03/08/2025 8:10 am COMPARISON: None HISTORY: ORDERING SYSTEM PROVIDED HISTORY: Reason for Exam: ELEVATED LIVER ENZYMES FINDINGS: The liver measures 15.2 cm and has increased echogenicity. No focal lesions are seen. There is no intra or extrahepatic bile duct dilatation. The common duct is 4.1 mm at the ever hepatis. The gallbladder is normally distended without calculus, wall thickening or tenderness. Negative sonographic Ramos sign. The visualized pancreas is normal in size and echogenicity. No ascites is seen in the RIGHT upper quadrant. Limited survey images of the RIGHT kidney show normal echogenicity and no pelvocaliectasis. There is a simple right renal cyst measuring 3 cm. IMPRESSION: Hepatic steatosis or other diffuse hepatocellular disease. I have personally reviewed the images of this examination and agree with the resident's findings and interpretation. Interpreted by: Jc Zarco DO Preliminary Report By: Jose Wilson MD Electronically signed By Jc Zarco DO Dictated Date: 03/08/2025 8:14:26 AM Prelim Date: 03/08/2025 8:29:28 AM Sign Date: 03/08/2025 8:29:28 AM Ordering Provider: [facility]01-27-2025 Instructions* Patient Instructions* Dav Luke MD - 11/20/2024 1:33 PM EST Please check with Dr. Grajeda's office if you have had a PSA drawn within the last year. If not, it could be taken from you blood draw today (possibly) with an order. HoLep procedure is for large prostates documented [facility] History of Present illness Narrative* Dav Luke MD - 11/20/2024 1:00 PM EST Images from the original note were not included. [facility] ESTABLISHED PATIENT CLINIC NOTE [facility] PATIENT INFO: Genaro Araiza AGE: [age] year old PCP: CONCEPCION GRAJEDA MD IMPRESSION/PLAN: 1. Benign prostatic hyperplasia with weak urinary stream - ICD9: 600.01, 788.62, ICD10: N40.1, R39.12 (primary diagnosis) -Gated prostate volume based on MRI is 248 cc. - Remain on Rapaflo and finasteride. These are working well for the patient. Refills provided. 2. Elevated PSA - ICD9: 790.93, ICD10: R97.20 -Patient well overdue for PSA testing, order provided. 3. Prostate cancer screening - ICD9: V76.44, ICD10: Z12.5 -As above 4. Screening for genitourinary condition - ICD9: V81.6, ICD10: Z13.89 REASON FOR VISIT: Follow-up, BPH management HPI: Genaro Araiza returns for continuing evaluation and management. Pleasant 74-year-old who returns for BPH management. Last seen May 2023. Overall he continues todo well on current combination of finasteride and Rapaflo. No major complaints at this time. See IPSS scores below. INTERNATIONAL PROSTATE SYMPTOM SCORE (I-PSS) 1)INCOMPLETE EMPTYING Over the past month, how often have you had a sensation of not emptying your bladder completely after you finished urinating? SCORE: 1- Less than 1 time in 5 2)FREQUENCY Over the past month, how often have you had to urinate again less than two hours after you finishedurinating? SCORE: 2- less than half the time 3)INTERMITTENCY Over the past month, how often have you found you stopped and started again several times when you urinated? SCORE: 1- Less than 1 time in 5 4)URGENCY Over the past month, how often have you found it difficult to postpone urination? SCORE: 0- Not at all 5)WEAK STREAM Over the past month, how often have you had a weak stream? SCORE: 1- Less than 1 time in 5 6)STRAINING Over the past month, how often have you had to push or strain to begin urination SCORE: 0- Not at all 7)NOCTURIA Over the past month, how many times did you most typically get up to urinate from the time you wentto bed at night until the time you get up in the morning? SCORE:1 TOTAL I-PSS SCORE: 6 QUALITY OF LIFE DUE TO URINARY SYMPTOMS If you were to spend the rest of yur life with your urinary condition just the way it is now, how would you feel about that? 1- Pleased UROLOGICAL DATA: Urinalysis: GLUCOSE UA (POCT) Negative 06/18/2023 BILIRUBIN UA (POCT) Negative 06/18/2023 KETONE UA (POCT) Negative 06/18/2023 SPECIFIC GRAVITY UA (POCT) 1.025 06/18/2023 HEMOGLOBIN/BLOOD UA (POCT) Negative 06/18/2023 PH UA (POCT) 5.5 06/18/2023 PROTEIN UA (POCT) Negative 06/18/2023 UROBILINOGEN UA (POCT) 0.2 06/18/2023 NITRITE UA (POCT) Negative 06/18/2023 LEUKOCYTES UA (POCT) Negative 06/18/2023 COLOR UA (POCT) Yellow 06/18/2023 CLARITY UA (POCT) Clear 06/18/2023 Post Void Residual, Ultrasound: 33 cc , empties adequately OTHER DATA: No results found for: PSA, PSAPER No results found for: ISOPSA Creatinine Date Value Ref Range Status 09/19/2024 1.24 0.50 - 1.40 mg/dL Final Comment: Patients receiving either N-Acetylcysteine (NAC) or Metamizole prior to venipuncture, may have falsely depressed results. No results found for: TESTOST, TESTFREE PMHx/PSHx: see above, otherwise unchanged Rx: reviewed and unchanged ROS: see above, otherwise unchanged Labs: None Imaging: None MEDICATIONS: Current Outpatient Medications Medication Sig methotrexate 2.5 mg tablet Take 2.5 mg by mouth one time only. aspirin, enteric coated (ASPIRIN, ENTERIC COATED) 81 mg EC tablet Take 81 mg by mouth once daily. Fenofibrate 150 mg cap Take 145 mg by mouth once daily. rosuvastatin (CRESTOR) 20 mg tablet Take 20 mg by mouth once daily. losartan (COZAAR) 100 mg tablet Take 100 mg by mouth once daily. finasteride (PROSCAR) 5 mg tablet Take 1 tablet by mouth once daily. silodosin (RAPAFLO) 8 mg cap capsule Take 1 capsule by mouth daily with dinner. simvastatin (ZOCOR) 10 mg tablet Take 10 mg by mouth daily at bedtime. (Patient not taking: Reported on 11/20/2024) No current facility-administered medications for this visit. PHYSICAL EXAM: There were no vitals taken for this visit. There is no height or weight on file to calculate BMI. General: Well masculinized, well nourished male Psych: euthymic, NAD Neuro: A&Ox3 Inguinal: No lesions, adenopathy, or hernias Phallus: normal, circumcised, no lesions Meatus: orthotopic, patent, no discharge Scrotum: no lesions, normal rugae Testes: Descended, nontender, and no masses bilaterally TOBY reveals a very large over 150 g prostate without nodularity or tenderness, normal anal sphincter tone. FOLLOW UP: 1 year or sooner if needed Visit complexity inherent to evaluation and management associated with medical care services that serve as the continuing focal point for all needed health care services and/or with medical care services that are part of ongoing care related to a patient s single, serious condition or a complex condition. Dav Luke M.D, MS Associate Staff [facility] documented in this encounterProm[facility]01-[facility]25 NoteHNO ID: [id number] Author: DAV LUKE MD Service: ? Author Type: Physician Type: Progress Notes Filed: 11/21/2024 00:48 Note Text: [facility] ESTABLISHED PATIENT CLINIC NOTE UROL [place] [facility] PATIENT INFO: Genaro Araiza AGE: [age] year old PCP: CONCEPCION GRAJEDA MD IMPRESSION/PLAN: 1. Benign prostatic hyperplasia with weak urinary stream - ICD9: 600.01, 788.62, ICD10: N40.1, R39.12 (primary diagnosis) -Gated prostate volume based on MRI is 248 cc. - Remain on Rapaflo and finasteride. These are working well for the patient. Refills provided. 2. Elevated PSA - ICD9: 790.93, ICD10: R97.20 -Patient well overdue for PSA testing, order provided. 3. Prostate cancer screening - ICD9: V76.44, ICD10: Z12.5 -As above 4. Screening for genitourinary condition - ICD9: V81.6, ICD10: Z13.89 REASON FOR VISIT: Follow-up, BPH management HPI: Genaro Araiza returns for continuing evaluation and management. Pleasant 74-year-old who returns for BPH management. Last seen May 2023. Overall he continues to do well on current combination of finasteride and Rapaflo. No major complaints at this time. See IPSS scores below. INTERNATIONAL PROSTATE SYMPTOM SCORE (I-PSS) 1)INCOMPLETE EMPTYING Over the past month, how often have you had a sensation of not emptying your bladder completely after you finished urinating? SCORE: 1- Less than 1 time in 5 2)FREQUENCY Over the past month, how often have you had to urinate again less than two hours after you finished urinating? SCORE: 2- less than half the time 3)INTERMITTENCY Over the past month, how often have you found you stopped and started again several times when you urinated? SCORE: 1- Less than 1 time in 5 4)URGENCY Over the past month, how often have you found it difficult to postpone urination? SCORE: 0- Not at all 5)WEAK STREAM Over the past month, how often have you had a weak stream? SCORE: 1- Less than 1 time in 5 6)STRAINING Over the past month, how often have you had to push or strain to begin urination SCORE: 0- Not at all 7)NOCTURIA Over the past month, how many times did you most typically get up to urinate from the time you went to bed at night until the time you get up in the morning? SCORE:1 TOTAL I-PSS SCORE: 6 QUALITY OF LIFE DUE TO URINARY SYMPTOMS If you were to spend the rest of yur life with your urinary condition just the way it is now, how would you feel about that? 1- Pleased UROLOGICAL DATA: Urinalysis: GLUCOSE UA (POCT) Negative 06/18/2023 BILIRUBIN UA (POCT) Negative 06/18/2023 KETONE UA (POCT) Negative 06/18/2023 SPECIFIC GRAVITY UA (POCT) 1.025 06/18/2023 HEMOGLOBIN/BLOOD UA (POCT) Negative 06/18/2023 PH UA (POCT) 5.5 06/18/2023 PROTEIN UA (POCT) Negative 06/18/2023 UROBILINOGEN UA (POCT) 0.2 06/18/2023 NITRITE UA (POCT) Negative 06/18/2023 LEUKOCYTES UA (POCT) Negative 06/18/2023 COLOR UA (POCT) Yellow 06/18/2023 CLARITY UA (POCT) Clear 06/18/2023 Post Void Residual, Ultrasound: 33 cc , empties adequately OTHER DATA: No results found for: PSA, PSAPER No results found for: ISOPSA Creatinine Date Value Ref Range Status 09/19/2024 1.24 0.50 - 1.40 mg/dL Final Comment: Patients receiving either N-Acetylcysteine (NAC) or Metamizole prior to venipuncture, may have falsely depressed results. No results found for: TESTOST, TESTFREE PMHx/PSHx: see above, otherwise unchanged Rx: reviewed and unchanged ROS: see above, otherwise unchanged Labs: None Imaging: None MEDICATIONS: Current Outpatient Medications Medication Sig methotrexate 2.5 mg tablet Take 2.5 mg by mouth one time only. aspirin, enteric coated (ASPIRIN, ENTERIC COATED) 81 mg EC tablet Take 81 mg by mouth once daily. Fenofibrate 150 mg cap Take 145 mg by mouth once daily. rosuvastatin (CRESTOR) 20 mg tablet Take 20 mg by mouth once daily. losartan (COZAAR) 100 mg tablet Take 100 mg by mouth once daily. finasteride (PROSCAR) 5 mg tablet Take 1 tablet by mouth once daily. silodosin (RAPAFLO) 8 mg cap capsule Take 1 capsule by mouth daily with dinner. simvastatin (ZOCOR) 10 mg tablet Take 10 mg by mouth daily at bedtime. (Patient not taking: Reported on 11/20/2024) No current facility-administered medications for this visit. PHYSICAL EXAM: There were no vitals taken for this visit. There is no height or weight on file to calculate BMI. General: Well masculinized, well nourished male Psych: euthymic, NAD Neuro: AANDOx3 Inguinal: No lesions, adenopathy, or hernias Phallus: normal, circumcised, no lesions Meatus: orthotopic, patent, no discharge Scrotum: no lesions, normal rugae Testes: Descended, nontender, and no masses bilaterally TOBY reveals a very large over 150 g prostate without nodularity or tenderness, normal anal sphincter tone. FOLLOW UP: 1 year or sooner if needed Visit complexity inherent to evaluation and manageme (more content not included)...[facility]01-20-2025 Telephone encounter Note* Telephone Encounter - Sonal Santos - 11/13/2024 9:55 AM EST Patient is scheduled 11/20/24, patient is aware. Left message with 's office 11/13/24. [facility]01-20-2025 Miscellaneous Notes* Telephone Encounter - Sonal Santos - 11/13/2024 9:55 AM EST Patient is scheduled 11/20/24, patient is aware. Left message with 's office 11/13/24. * Telephone Encounter - Mona Mittal OCCA - 11/09/2024 2:00 PM EST Joss, from Dr. Grajeda's office, called and wanted to set up an annual checkup for the pt. Can you please call pt to schedule? He was last seen by Dr. Luke in 2022. Dr. Grajeda's office would like for us to call and let them know when the appt is for. Mona Tran OCCA [facility] Telephone encounter Note * Telephone Encounter - Mona Mittal OCCA - 11/09/2024 2:00 PM EST Joss, from Dr. Grajeda's office, called and wanted to set up an annual checkup for the pt. Can you please call pt to schedule? He was last seen by Dr. Luke in 2022. Dr. Grajeda's office would like for us to call and let them know when the appt is for. Thanks, CARLITOS Morrissey [facility]08-25-2023 History of Present illness Narrative* Dav Luke MD - 06/18/2023 3:29 PM EDT Images from the original note were not included. [facility] UROLOGY NEW PATIENT CLINIC NOTE [facility] PATIENT: Genaro Araiza (73 year old) PCP: CONCEPCION GRAJEDA MD CHIEF COMPLAINT: BPH management HISTORY OF PRESENT ILLNESS: Genaro Araiza is a 73 year old male who [facility] [place], [place] with a history of BPH with LUTS. He's been on Finasteride and Rapaflo for several years but feels they are not as effective as they used to be. INTERNATIONAL PROSTATE SYMPTOM SCORE (I-PSS) 1)INCOMPLETE EMPTYING Over the past month, how often have you had a sensation of not emptying your bladder completely after you finished urinating? SCORE: 2- less than half the time 2)FREQUENCY Over the past month, how often have you had to urinate again less than two hours after you finishedurinating? SCORE: 3- About half the time 3)INTERMITTENCY Over the past month, how often have you found you stopped and started again several times when you urinated? SCORE: 3- About half the time 4)URGENCY Over the past month, how often have you found it difficult to postpone urination? SCORE: 2- less than half the time 5)WEAK STREAM Over the past month, how often have you had a weak stream? SCORE: 4- More than half the time 6)STRAINING Over the past month, how often have you had to push or strain to begin urination SCORE: 0- Not at all 7)NOCTURIA Over the past month, how many times did you most typically get up to urinate from the time you wentto bed at night until the time you get up in the morning? SCORE:2 TOTAL I-PSS SCORE: 16 QUALITY OF LIFE DUE TO URINARY SYMPTOMS If you were to spend the rest of yur life with your urinary condition just the way it is now, how would you feel about that? 4- Mostly dissatisfied LABS: No results found for: PSA, PSAPER No results found for: ISOPSA No results found for: CREAT OFFICE DATA: POST-VOID RESIDUAL BLADDER VOLUME: 81 cc, empties well URINE POC GLUCOSE UA (POCT) Negative 06/18/2023 BILIRUBIN UA (POCT) Negative 06/18/2023 KETONE UA (POCT) Negative 06/18/2023 SPECIFIC GRAVITY UA (POCT) 1.025 06/18/2023 HEMOGLOBIN/BLOOD UA (POCT) Negative 06/18/2023 PH UA (POCT) 5.5 06/18/2023 PROTEIN UA (POCT) Negative 06/18/2023 UROBILINOGEN UA (POCT) 0.2 06/18/2023 NITRITE UA (POCT) Negative 06/18/2023 LEUKOCYTES UA (POCT) Negative 06/18/2023 COLOR UA (POCT) Yellow 06/18/2023 CLARITY UA (POCT) Clear 06/18/2023 IMAGING: none REVIEW OF SYSTEMS: Reviewed and otherwise non-contributory. HISTORY: PAST MEDICAL HISTORY Diagnosis Date Essential hypertension History reviewed. No pertinent surgical history. Social History Tobacco Use Smoking status: Former Types: Cigarettes Smokeless tobacco: Never Vaping Use Vaping Use: Never used Substance Use Topics Drug use: Never History reviewed. No pertinent family history. MEDICATIONS: Current Outpatient Medications Medication Sig simvastatin (ZOCOR) 10 mg tablet Take 10 mg by mouth daily at bedtime. Fenofibrate 150 mg cap Take 145 mg by mouth once daily. rosuvastatin (CRESTOR) 20 mg tablet Take 20 mg by mouth once daily. losartan (COZAAR) 100 mg tablet Take 100 mg by mouth once daily. finasteride (PROSCAR) 5 mg tablet Take 1 tablet by mouth once daily. silodosin (RAPAFLO) 8 mg cap capsule Take 1 capsule by mouth daily with dinner. No current facility-administered medications for this visit. PHYSICAL EXAMINATION: VITALS: BP 133/85 (BP Site: Right Arm, BP Position: Sitting, BP Cuff Size: Regular Adult) Pulse 75 SpO2 99% GENERAL: alert, no distress, normal affect RESPIRATORY: normal effort ABDOMEN: soft, non-tender GENITOURINARY: Inguinal: No lesions, adenopathy, or hernias Phallus: normal, uncircumcised, no lesions Meatus: orthotopic, patent, no discharge Scrotum: no lesions, normal rugae Testes: Descended, nontender, and no masses bilaterally L: nl R:nl Epididymides: L nl R nl Vas deferens: palpable bilaterally Varicocele: none TOBY reveals a 60-80 g prostate without nodularity or tenderness, normal anal sphincter tone. EXTREMITIES: warm, no dependent edema, no malformations SKIN: no abnormal bruising, no rashes, no cyanosis NEUROLOGIC: normal gait, good manual dexterity, no paralysis ASSESSMENT/PLAN: 1. Benign prostatic hyperplasia with weak urinary stream - ICD9: 600.01, 788.62, ICD10: N40.1, R39.12 (primary diagnosis) -Refills for finasteride and Rapaflo provided today. Likely becoming refractory to his meds. - The patient has lower urinary tract symptoms suggestive of benign prostatic hyperplasia. I discussed options of treatment including medications and surgery. I discussed the risks, benefits, and alternatives to both alpha blockers, 5- alpha reductase inhibitors, and PDE-5 inhibitors such as Viagra,Levitra, or Cialis. I also discussed the role of cystoscopy, urodynamics, and transrectal ultrasound of the prostate in diagnosing the nature of the symptoms, and the risks, benefits, alternatives tothese procedures were explained. Additionally, I discussed the role of laser photovaporization of the prostate in this condition, Rezum, and UroLift procedures to correct voiding dysfunction secondary to BPH. Risks discussed include but are not limited to bleeding, infection, pain, damage to other to other tissues, clots in the legs and lungs, urinary leakage or blockage, retrograde ejaculation, or that the procedure does not improve or even worsens symptoms. All questions were answered. - Plan for CYSTO/TRUS ONLY 2. Prostate cancer screening - ICD9: V76.44, ICD10: Z12.5 - PSA/PROSTSPECAG SCRN 3. Screening for genitourinary condition - ICD9: V81.6, ICD10: Z13.89 - BLADDER SCAN Dav Luke MD, MS Associate Staff [facility] [place] [facility] documented in this encounterPromedica [facility] HospitalEvaluation + Plan note Future Appointments Appointment Date:05/11/2025 10:30:00 AM Scheduled Provider:CONCEPCION GRAJEDA MD Location:[facility] Appointment Type:PC OV Follow Up [facility] Evaluation note* Diagnosis Benign prostatic hyperplasia with weak urinary stream- Primary Prostate cancer screening Special screening for malignant neoplasm of prostate Screening for genitourinary condition Screening for other and unspecified genitourinary condition [facility]* Diagnosis Benign prostatic hyperplasia with weak urinary stream- Primary Elevated PSA Elevated prostate specific antigen (PSA) Prostate cancer screening Special screening for malignant neoplasm of prostate Screening for genitourinary condition Screening for other and unspecified genitourinary condition [facility] Narrative No data available for this section [facility] Hospital Discharge instructions No data available for this section [facility] Progress note No data available for this section [facility] Reason for referral (narrative)* Outpatient Procedure (Routine) - Pending Review Specialty Diagnoses / Procedures Referred By Conttawanda t Referred To Contact [facility] Diagnoses Benign prostatic hyperplasia with weak urinary stream Procedures CYSTO/TRUS ONLY CYSTOURETHROSCOPY US, TRANSRECTAL Dav Luke MD [address] [place] [address] [facility] [address] [place] [address] Referral ID Status Reason Start Date Expiration Date Visits Requested Visits Authorized [id number] Pending Review Auto-Generat ed Referral 06/18/2023 06/18/2024 1 1 [facility] Summary Purpose Family History No Family History Records FoundNo Family History Records FoundNo Family History Records FoundNo Family History Records FoundNo Family History Records Found No data available for this section No Family History Records Found Advance Directives No Advanced Directives Records FoundNo Advanced Directives Records FoundNo Advanced Directives Records FoundNo Advanced Directives Records FoundNo Advanced Directives Records FoundNo Advanced Directives Records Found Additional Source Comments Source Comments (unrecognize d section and content) In the event this informatio n is protected by the Federal Confidentiality of Alcohol and Drug Abuse Patient Records regulations: The Federal rules restrict any use of the information to criminally investigate or prosecute any alcohol or drug abuse patient.[facility] the event this information is protected by the Federal Confidentiality of Alcohol and Drug Abuse Patient Records regulations: The Federal rules restrict any use of the information to criminally investigate or prosecute any alcohol or drug abuse patient.[facility] Hospital[facility] the event this information is protected by the Federal Confidentiality of Alcohol and Drug Abuse Patient Records regulations: The Federal rules restrict any use of the information to criminally investigate or prosecute any alcohol or drug abuse patient.[facility] Hospital[facility] the event this information is protected by the Federal Confidentiality of Alcohol and Drug Abuse Patient Records regulations: The Federal rules restrict any use of the information to criminally investigate or prosecute any alcohol or drug abuse patient.[facility] Reason for Visit (unrecogniz ed section and content) Reason Comments Consult History of prostate issues Reason Comments Refill Request Reason Comments BPH with weak urinary stream ref erral Care Teams (unrecognized sec tion and content) 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 Relationship Specialty Start Date End Date Concepcion Grajeda MD [address] [facility] [address] [place] [address] PCP - General Internal Medicine 06/02/23 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 Relationship Specialty Start Date End Date Concepcion Grajeda MD [address] [facility] [address] [place] [address] PCP - General Internal Medicine 06/02/23 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 Relationship Specialty Start Date End Date Concepcion Grajeda MD [address] [facility] [address] [place] [address] PCP - General Internal Medicine 06/02/23 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 Relationship Specialty Start Date End Date Concepcion Grajeda MD [address] [facility] [address] [place] [address] PCP - General Internal Medicine 06/02/23 (unrecognized sect ion and content) No Status Records FoundNo Status Records FoundNo Status Records FoundNo Status Records FoundNo Status Records FoundNo Status Records Found INFORMATION SOURCE (unrecogn ized section and content) DATE CREATED AUTHOR 06/19/2024 [facility] ([place]) DATE CREATED AUTHOR AUTHOR'S ORGANIZ ATION 07/25/2024 [facility] DATE CREATED AUTHOR AUTHOR'S ORGANIZ ATION 09/02/2024 [facility] DATE CREATED AUTHOR AUTHOR'S ORGANIZ ATION 11/26/2024 [facility] [place] [facility] DATE CREATED AUTHOR AUTHOR'S ORGANIZ ATION 03/08/2025 [facility] DATE CREATED AUTHOR AUTHOR'S ORGANIZ ATION 03/10/2025 [facility] FOR RECORDS PERTAINING TO PATIENTS WHO ARE OR HAVE BEEN ENROLLED IN A CHEMICAL DEPENDENCY/SUBSTANCEABUSE PROGRAM, SOME INFORMATION MAY BE OMITTED. This clinical summary was aggregated from multiple sources. Caution should be exercised in using it in the provision of clinical care. This summary normalizes information from multiple sources, and as a consequence, information in this document may materially change the coding, format and clinical context of patient data. In addition, data may be omitted in some cases. CLINICAL DECISIONS SHOULD BE BASED ON THE PRIMARY CLINICAL RECORDS. [employer] provides no warranty or guarantee of the accuracy or completeness of information in this document.
== END | disposition home or self-care (01) ==
LOC: MTLAB 11:33
PROVIDERS: PCP Internal Medicine; Referring Provider Internal Medicine Rheumatology; Visit Provider Internal Medicine Rheumatology
DX: M05.79 Rheumatoid arthritis with rheumatoid factor of multiple sites without organ or systems involvement (principal); Z79.899 Other long term (current) drug therapy
CPT/HCPCS: 36415; 80053; 85025